=== PATIENT | female | born 1985 | race Caucasian/White ===

== ENCOUNTER → 2019-06-26 | Outpatient (CLI) | payer MEDICAID ==
[~2019-06-26] MED LIST: ACTOS15 MG; CPR500T PO; INSU100I16 SQ; INSU100I17 SQ; INSU100V6; LEVE1U SC; MTF500T; MULT-963 PO; SITA100T; [UNRECOGNIZED DRUG - CODE] SQ
[2019-06-26 17:50] LABS: BASOPHILS % (AUTO) 0 % (0-10); EOSINOPHILS % (AUTO) 5 % (0-10); HEMATOCRIT 34 % (35-52); LYMPHOCYTES % (AUTO) 44 % (12-44); MEAN CORPUSCULAR HEMOGLOBIN 31 PG (25-34); MEAN CORPUSCULAR HGB CONC 32 G/DL (32-36); MEAN CORPUSCULAR VOLUME 96 FL (80-99); MEAN PLATELET VOLUME 12.7 FL (7.4-10.4); MONOCYTES % (AUTO) 8 % (0-12); NEUTROPHILS % (AUTO) 42 % (42-75); PLATELET COUNT 179 10^3/uL (130-400); RED CELL DISTRIBUTION WIDTH 15.1 % (10.0-14.5); WHITE BLOOD COUNT 5.1 10^3/uL (4.3-11.0)
[2019-06-26 17:51] LABS: EOSINOPHILS # (AUTO) 0.3 10^3/uL (0.0-0.3); LYMPHOCYTES # (AUTO) 2.3 X 10^3 (1.0-4.0); MONOCYTES # (AUTO) 0.4 X 10^3 (0.0-1.0); NEUTROPHILS # (AUTO) 2.1 X 10^3 (1.8-7.8)
[2019-06-26 18:43] LABS: CHLORIDE 100 MMOL/L (98-107); POTASSIUM 5.8 MMOL/L (3.6-5.0); SODIUM 135 MMOL/L (135-145)
[2019-06-26 18:44] LABS: BUN/CREATININE RATIO 42; CARBON DIOXIDE 25 MMOL/L (21-32); CREATININE SERUM 0.43 MG/DL (0.60-1.30); GFR ESTIMATED > 60
[2019-06-26 19:00] LABS: ALKALINE PHOSPHATASE 55 U/L (40-136); BILIRUBIN,TOTAL 0.3 MG/DL (0.1-1.0); CALCIUM 9.4 MG/DL (8.5-10.1); GLUCOSE 619 MG/DL (70-105); MAGNESIUM 2.3 MG/DL (1.6-2.4)
[2019-06-26 19:01] LABS: ALANINE AMINOTRANSFERASE 20 U/L (0-55); ALBUMIN 3.4 GM/DL (3.2-4.5); TOTAL PROTEIN 6.1 GM/DL (6.4-8.2)
[2019-06-27 14:50] LABS: PHOSPHORUS 4.6 MG/DL (2.3-4.7)
== END ==
LOC: LAB FS 17:30
PROVIDERS: ATTEND Nurse Practitioner
DX: Z76.0 Encounter for issue of repeat prescription (principal); K31.84 Gastroparesis
CPT/HCPCS: 36415; 80053; 83735; 84100; 85025

== ENCOUNTER → 2019-06-27 | Outpatient (CLI) | payer MEDICAID ==
[2019-06-27 16:20] LABS: CARBON DIOXIDE 28 MMOL/L (21-32); CHLORIDE 104 MMOL/L (98-107); SODIUM 141 MMOL/L (135-145)
[2019-06-27 16:21] LABS: ALANINE AMINOTRANSFERASE 21 U/L (0-55); ALBUMIN 3.8 GM/DL (3.2-4.5); ALKALINE PHOSPHATASE 58 U/L (40-136); BILIRUBIN,TOTAL 0.3 MG/DL (0.1-1.0); BUN/CREATININE RATIO 48; CALCIUM 9.2 MG/DL (8.5-10.1); GFR ESTIMATED > 60; GLUCOSE 124 MG/DL (70-105); MAGNESIUM 2.1 MG/DL (1.6-2.4); TOTAL PROTEIN 6.2 GM/DL (6.4-8.2)
[2019-06-28 15:29] LABS: PHOSPHORUS 3.9 MG/DL (2.3-4.7)
== END ==
LOC: LAB FS 15:37
PROVIDERS: ATTEND Nurse Practitioner
DX: Z76.0 Encounter for issue of repeat prescription (principal); K31.84 Gastroparesis
CPT/HCPCS: 36415; 80053; 83735; 84100

== ENCOUNTER → 2019-07-02 | Outpatient (CLI) | payer MEDICAID ==
[2019-07-02 15:05] LABS: WHITE BLOOD COUNT 4.9 10^3/uL (4.3-11.0)
[2019-07-02 15:06] LABS: BASOPHILS % (AUTO) 0 % (0-10); EOSINOPHILS # (AUTO) 0.2 10^3/uL (0.0-0.3); EOSINOPHILS % (AUTO) 4 % (0-10); HEMATOCRIT 28 % (35-52); HEMOGLOBIN 8.6 G/DL (11.5-16.0); LYMPHOCYTES # (AUTO) 1.8 X 10^3 (1.0-4.0); LYMPHOCYTES % (AUTO) 37 % (12-44); MEAN CORPUSCULAR HEMOGLOBIN 30 PG (25-34); MEAN CORPUSCULAR HGB CONC 31 G/DL (32-36); MEAN CORPUSCULAR VOLUME 99 FL (80-99); MEAN PLATELET VOLUME 12.5 FL (7.4-10.4); MONOCYTES # (AUTO) 0.5 X 10^3 (0.0-1.0); MONOCYTES % (AUTO) 11 % (0-12); NEUTROPHILS # (AUTO) 2.4 X 10^3 (1.8-7.8); NEUTROPHILS % (AUTO) 49 % (42-75); PLATELET COUNT 197 10^3/uL (130-400); RED CELL DISTRIBUTION WIDTH 15.9 % (10.0-14.5)
[2019-07-02 15:25] LABS: ALANINE AMINOTRANSFERASE 18 U/L (0-55); ALKALINE PHOSPHATASE 53 U/L (40-136); BILIRUBIN,TOTAL 0.2 MG/DL (0.1-1.0); BUN/CREATININE RATIO 54; CALCIUM 9.1 MG/DL (8.5-10.1); CARBON DIOXIDE 27 MMOL/L (21-32); CHLORIDE 105 MMOL/L (98-107); CREATININE SERUM 0.41 MG/DL (0.60-1.30); GFR ESTIMATED > 60; GLUCOSE 103 MG/DL (70-105); MAGNESIUM 1.7 MG/DL (1.6-2.4); POTASSIUM 4.7 MMOL/L (3.6-5.0); SODIUM 142 MMOL/L (135-145); TOTAL PROTEIN 5.8 GM/DL (6.4-8.2)
[2019-07-02 15:26] LABS: ALBUMIN 3.4 GM/DL (3.2-4.5)
[2019-07-03 08:23] LABS: PHOSPHORUS 5.4 MG/DL (2.3-4.7)
== END ==
LOC: LAB FS 14:18
PROVIDERS: ATTEND Family Medicine
DX: Z76.0 Encounter for issue of repeat prescription (principal); K31.84 Gastroparesis
CPT/HCPCS: 36415; 80053; 83735; 84100; 85025

== ENCOUNTER → 2019-07-09 | Outpatient (CLI) | payer OTHER, MEDICAID ==
[2019-07-09 13:00] LABS: HEMATOCRIT 31 % (35-52); HEMOGLOBIN 9.9 G/DL (11.5-16.0); MEAN CORPUSCULAR HEMOGLOBIN 31 PG (25-34); MEAN CORPUSCULAR VOLUME 96 FL (80-99); WHITE BLOOD COUNT 5.5 10^3/uL (4.3-11.0)
[2019-07-09 13:01] LABS: BASOPHILS % (AUTO) 0 % (0-10); EOSINOPHILS # (AUTO) 0.1 10^3/uL (0.0-0.3); EOSINOPHILS % (AUTO) 1 % (0-10); LYMPHOCYTES # (AUTO) 1.6 X 10^3 (1.0-4.0); LYMPHOCYTES % (AUTO) 29 % (12-44); MEAN CORPUSCULAR HGB CONC 32 G/DL (32-36); MEAN PLATELET VOLUME 12.5 FL (7.4-10.4); MONOCYTES # (AUTO) 0.6 X 10^3 (0.0-1.0); MONOCYTES % (AUTO) 10 % (0-12); NEUTROPHILS # (AUTO) 3.3 X 10^3 (1.8-7.8); NEUTROPHILS % (AUTO) 59 % (42-75); PLATELET COUNT 237 10^3/uL (130-400); RED CELL DISTRIBUTION WIDTH 14.9 % (10.0-14.5)
[2019-07-09 13:23] LABS: ALANINE AMINOTRANSFERASE 17 U/L (0-55); ALKALINE PHOSPHATASE 55 U/L (40-136); BILIRUBIN,TOTAL 0.5 MG/DL (0.1-1.0); BUN/CREATININE RATIO 42; CALCIUM 9.2 MG/DL (8.5-10.1); CARBON DIOXIDE 27 MMOL/L (21-32); CHLORIDE 104 MMOL/L (98-107); CREATININE SERUM 0.36 MG/DL (0.60-1.30); GFR ESTIMATED > 60; GLUCOSE 88 MG/DL (70-105); MAGNESIUM 1.8 MG/DL (1.6-2.4); POTASSIUM 3.9 MMOL/L (3.6-5.0); SODIUM 141 MMOL/L (135-145)
[2019-07-09 13:24] LABS: ALBUMIN 3.7 GM/DL (3.2-4.5); TOTAL PROTEIN 6.3 GM/DL (6.4-8.2)
[2019-07-09 15:02] LABS: PHOSPHORUS 3.8 MG/DL (2.3-4.7)
== END ==
LOC: LABNPT 12:38
PROVIDERS: ATTEND Family Medicine
DX: Z76.0 Encounter for issue of repeat prescription (principal); K31.84 Gastroparesis
CPT/HCPCS: 80053; 83735; 84100; 85025

== ENCOUNTER → 2019-07-16 | Outpatient (CLI) | payer OTHER, MEDICAID ==
[2019-07-16 16:28] LABS: BASOPHILS % (AUTO) 0 % (0-10); EOSINOPHILS # (AUTO) 0.2 10^3/uL (0.0-0.3); EOSINOPHILS % (AUTO) 2 % (0-10); HEMATOCRIT 35 % (35-52); HEMOGLOBIN 10.9 G/DL (11.5-16.0); LYMPHOCYTES % (AUTO) 26 % (12-44); MEAN CORPUSCULAR HEMOGLOBIN 31 PG (25-34); MEAN CORPUSCULAR HGB CONC 31 G/DL (32-36); MEAN CORPUSCULAR VOLUME 99 FL (80-99); MEAN PLATELET VOLUME 13.6 FL (7.4-10.4); MONOCYTES # (AUTO) 0.5 X 10^3 (0.0-1.0); MONOCYTES % (AUTO) 6 % (0-12); NEUTROPHILS # (AUTO) 4.9 X 10^3 (1.8-7.8); NEUTROPHILS % (AUTO) 65 % (42-75); PLATELET COUNT 182 10^3/uL (130-400); RED CELL DISTRIBUTION WIDTH 14.1 % (10.0-14.5); WHITE BLOOD COUNT 7.6 10^3/uL (4.3-11.0)
[2019-07-16 17:21] LABS: BUN/CREATININE RATIO 50; CALCIUM 9.1 MG/DL (8.5-10.1); CARBON DIOXIDE 23 MMOL/L (21-32); CHLORIDE 101 MMOL/L (98-107); CREATININE SERUM 0.44 MG/DL (0.60-1.30); GFR ESTIMATED > 60; GLUCOSE 168 MG/DL (70-105); POTASSIUM 5.1 MMOL/L (3.6-5.0); SODIUM 137 MMOL/L (135-145)
[2019-07-16 17:22] LABS: ALANINE AMINOTRANSFERASE 21 U/L (0-55); ALBUMIN 3.7 GM/DL (3.2-4.5); ALKALINE PHOSPHATASE 61 U/L (40-136); BILIRUBIN,TOTAL 0.5 MG/DL (0.1-1.0); MAGNESIUM 1.8 MG/DL (1.6-2.4); TOTAL PROTEIN 6.5 GM/DL (6.4-8.2)
== END ==
LOC: LAB FS 15:53
PROVIDERS: ATTEND Nurse Practitioner
DX: K31.84 Gastroparesis (principal); R11.2 Nausea with vomiting, unspecified
CPT/HCPCS: 36415; 80053; 83735; 84100; 85025

== ENCOUNTER → 2019-07-23 | Outpatient (CLI) | payer OTHER, MEDICAID ==
[2019-07-23 17:40] LABS: HEMATOCRIT 34 % (35-52); HEMOGLOBIN 10.7 G/DL (11.5-16.0); MEAN CORPUSCULAR HEMOGLOBIN 30 PG (25-34); MEAN CORPUSCULAR HGB CONC 31 G/DL (32-36); MEAN CORPUSCULAR VOLUME 98 FL (80-99); MEAN PLATELET VOLUME 13.9 FL (7.4-10.4); PLATELET COUNT 167 10^3/uL (130-400); RED CELL DISTRIBUTION WIDTH 13.7 % (10.0-14.5); WHITE BLOOD COUNT 7.6 10^3/uL (4.3-11.0)
[2019-07-23 17:41] LABS: BASOPHILS % (AUTO) 0 % (0-10); EOSINOPHILS # (AUTO) 0.1 10^3/uL (0.0-0.3); EOSINOPHILS % (AUTO) 2 % (0-10); LYMPHOCYTES # (AUTO) 1.8 X 10^3 (1.0-4.0); LYMPHOCYTES % (AUTO) 24 % (12-44); MONOCYTES # (AUTO) 0.3 X 10^3 (0.0-1.0); MONOCYTES % (AUTO) 4 % (0-12); NEUTROPHILS # (AUTO) 5.3 X 10^3 (1.8-7.8); NEUTROPHILS % (AUTO) 70 % (42-75)
[2019-07-23 18:12] LABS: POTASSIUM 5.1 MMOL/L (3.6-5.0); SODIUM 135 MMOL/L (135-145)
[2019-07-23 18:13] LABS: ALANINE AMINOTRANSFERASE 19 U/L (0-55); ALBUMIN 3.7 GM/DL (3.2-4.5); ALKALINE PHOSPHATASE 60 U/L (40-136); BILIRUBIN,TOTAL 0.5 MG/DL (0.1-1.0); BUN/CREATININE RATIO 44; CALCIUM 9.1 MG/DL (8.5-10.1); CARBON DIOXIDE 25 MMOL/L (21-32); CHLORIDE 98 MMOL/L (98-107); CREATININE SERUM 0.43 MG/DL (0.60-1.30); GFR ESTIMATED > 60; GLUCOSE 291 MG/DL (70-105); MAGNESIUM 1.7 MG/DL (1.6-2.4); TOTAL PROTEIN 6.7 GM/DL (6.4-8.2)
[2019-07-24 15:11] LABS: PHOSPHORUS 4.3 MG/DL (2.3-4.7)
== END ==
LOC: LAB FS 16:59
PROVIDERS: ATTEND Nurse Practitioner
DX: Z76.0 Encounter for issue of repeat prescription (principal); K31.84 Gastroparesis
CPT/HCPCS: 36415; 80053; 83735; 84100; 85025

== ENCOUNTER → 2019-07-30 | Outpatient (CLI) | payer OTHER, MEDICAID ==
[2019-07-30 16:01] LABS: HEMATOCRIT 33 % (35-52); HEMOGLOBIN 10.6 G/DL (11.5-16.0); MEAN CORPUSCULAR HEMOGLOBIN 31 PG (25-34); MEAN CORPUSCULAR VOLUME 98 FL (80-99)
[2019-07-30 16:02] LABS: BASOPHILS % (AUTO) 0 % (0-10); EOSINOPHILS % (AUTO) 3 % (0-10); LYMPHOCYTES % (AUTO) 19 % (12-44); MEAN CORPUSCULAR HGB CONC 32 G/DL (32-36); MEAN PLATELET VOLUME 13.9 FL (7.4-10.4); MONOCYTES % (AUTO) 6 % (0-12); PLATELET COUNT 170 10^3/uL (130-400); RED CELL DISTRIBUTION WIDTH 13.4 % (10.0-14.5)
[2019-07-30 16:03] LABS: NEUTROPHILS % (AUTO) 72 % (42-75)
[2019-07-30 16:04] LABS: EOSINOPHILS # (AUTO) 0.3 10^3/uL (0.0-0.3); LYMPHOCYTES # (AUTO) 1.9 X 10^3 (1.0-4.0); MONOCYTES # (AUTO) 0.6 X 10^3 (0.0-1.0); NEUTROPHILS # (AUTO) 7.2 X 10^3 (1.8-7.8)
[2019-07-30 17:17] LABS: ALANINE AMINOTRANSFERASE 20 U/L (0-55); ALBUMIN 3.7 GM/DL (3.2-4.5); ALKALINE PHOSPHATASE 55 U/L (40-136); BILIRUBIN,TOTAL 0.4 MG/DL (0.1-1.0); BUN/CREATININE RATIO 45; CALCIUM 9.6 MG/DL (8.5-10.1); CARBON DIOXIDE 26 MMOL/L (21-32); CHLORIDE 99 MMOL/L (98-107); GFR ESTIMATED > 60; GLUCOSE 243 MG/DL (70-105); MAGNESIUM 1.8 MG/DL (1.6-2.4); POTASSIUM 4.6 MMOL/L (3.6-5.0); SODIUM 136 MMOL/L (135-145); TOTAL PROTEIN 6.5 GM/DL (6.4-8.2)
== END ==
LOC: LAB FS 15:12
PROVIDERS: ATTEND Nurse Practitioner
DX: K31.84 Gastroparesis (principal); R11.2 Nausea with vomiting, unspecified; Z76.0 Encounter for issue of repeat prescription
CPT/HCPCS: 36415; 80053; 83735; 84100; 85025

== ENCOUNTER → 2019-08-06 | Outpatient (CLI) | payer OTHER, MEDICAID ==
[2019-08-06 18:09] LABS: BASOPHILS % (AUTO) 0 % (0-10); EOSINOPHILS % (AUTO) 3 % (0-10); HEMATOCRIT 34 % (35-52); HEMOGLOBIN 10.7 G/DL (11.5-16.0); LYMPHOCYTES % (AUTO) 29 % (12-44); MEAN CORPUSCULAR HEMOGLOBIN 31 PG (25-34); MEAN CORPUSCULAR HGB CONC 32 G/DL (32-36); MEAN CORPUSCULAR VOLUME 98 FL (80-99); MEAN PLATELET VOLUME 13.7 FL (7.4-10.4); MONOCYTES % (AUTO) 6 % (0-12); NEUTROPHILS % (AUTO) 62 % (42-75); PLATELET COUNT 198 10^3/uL (130-400); RED CELL DISTRIBUTION WIDTH 13.4 % (10.0-14.5); WHITE BLOOD COUNT 6.8 10^3/uL (4.3-11.0)
[2019-08-06 18:10] LABS: EOSINOPHILS # (AUTO) 0.2 10^3/uL (0.0-0.3); MONOCYTES # (AUTO) 0.4 X 10^3 (0.0-1.0); NEUTROPHILS # (AUTO) 4.2 X 10^3 (1.8-7.8)
[2019-08-06 18:25] LABS: ALANINE AMINOTRANSFERASE 15 U/L (0-55); ALBUMIN 3.7 GM/DL (3.2-4.5); ALKALINE PHOSPHATASE 55 U/L (40-136); BILIRUBIN,TOTAL 0.5 MG/DL (0.1-1.0); BUN/CREATININE RATIO 54; CALCIUM 9.4 MG/DL (8.5-10.1); CARBON DIOXIDE 25 MMOL/L (21-32); CHLORIDE 99 MMOL/L (98-107); CREATININE SERUM 0.37 MG/DL (0.60-1.30); GFR ESTIMATED > 60; GLUCOSE 195 MG/DL (70-105); MAGNESIUM 1.7 MG/DL (1.6-2.4); POTASSIUM 4.4 MMOL/L (3.6-5.0); SODIUM 136 MMOL/L (135-145); TOTAL PROTEIN 6.3 GM/DL (6.4-8.2)
[2019-08-06 19:10] LABS: PHOSPHORUS 4.1 MG/DL (2.3-4.7)
== END ==
LOC: LAB FS 17:29
PROVIDERS: ATTEND Nurse Practitioner
DX: K31.84 Gastroparesis (principal); R11.2 Nausea with vomiting, unspecified
CPT/HCPCS: 36415; 80053; 83735; 84100; 85025

== ENCOUNTER → 2019-08-13 | Outpatient (CLI) | payer OTHER, MEDICAID ==
[2019-08-13 17:07] LABS: HEMATOCRIT 32 % (35-52); HEMOGLOBIN 9.9 G/DL (11.5-16.0); MEAN CORPUSCULAR HEMOGLOBIN 31 PG (25-34); MEAN CORPUSCULAR HGB CONC 31 G/DL (32-36); MEAN CORPUSCULAR VOLUME 99 FL (80-99); MEAN PLATELET VOLUME 13.8 FL (7.4-10.4); PLATELET COUNT 151 10^3/uL (130-400); RED CELL DISTRIBUTION WIDTH 13.3 % (10.0-14.5); WHITE BLOOD COUNT 6.6 10^3/uL (4.3-11.0)
[2019-08-13 17:08] LABS: BASOPHILS % (AUTO) 0 % (0-10); EOSINOPHILS # (AUTO) 0.2 10^3/uL (0.0-0.3); EOSINOPHILS % (AUTO) 3 % (0-10); LYMPHOCYTES # (AUTO) 2.2 X 10^3 (1.0-4.0); LYMPHOCYTES % (AUTO) 33 % (12-44); MONOCYTES # (AUTO) 0.5 X 10^3 (0.0-1.0); MONOCYTES % (AUTO) 8 % (0-12); NEUTROPHILS # (AUTO) 3.7 X 10^3 (1.8-7.8); NEUTROPHILS % (AUTO) 56 % (42-75)
[2019-08-13 17:11] LABS: ALANINE AMINOTRANSFERASE 26 U/L (0-55); ALKALINE PHOSPHATASE 56 U/L (40-136); BILIRUBIN,TOTAL 0.3 MG/DL (0.1-1.0); BUN/CREATININE RATIO 41; CARBON DIOXIDE 24 MMOL/L (21-32); CHLORIDE 102 MMOL/L (98-107); CREATININE SERUM 0.46 MG/DL (0.60-1.30); GFR ESTIMATED > 60; GLUCOSE 268 MG/DL (70-105); MAGNESIUM 1.7 MG/DL (1.6-2.4); POTASSIUM 5.3 MMOL/L (3.6-5.0); SODIUM 137 MMOL/L (135-145); TOTAL PROTEIN 5.8 GM/DL (6.4-8.2)
[2019-08-13 17:12] LABS: ALBUMIN 3.6 GM/DL (3.2-4.5)
[2019-08-14 15:18] LABS: PHOSPHORUS 5.3 MG/DL (2.3-4.7)
== END ==
LOC: LAB FS 16:25
PROVIDERS: ATTEND Family Medicine
DX: K31.84 Gastroparesis (principal)
CPT/HCPCS: 36415; 80053; 83735; 84100; 85025

== ENCOUNTER → 2019-08-20 | Outpatient (CLI) | payer OTHER, MEDICAID ==
[2019-08-20 14:47] LABS: BASOPHILS % (AUTO) 0 % (0-10); EOSINOPHILS % (AUTO) 2 % (0-10); HEMATOCRIT 34 % (35-52); HEMOGLOBIN 10.7 G/DL (11.5-16.0); LYMPHOCYTES % (AUTO) 29 % (12-44); MEAN CORPUSCULAR HEMOGLOBIN 31 PG (25-34); MEAN CORPUSCULAR HGB CONC 32 G/DL (32-36); MEAN CORPUSCULAR VOLUME 97 FL (80-99); MEAN PLATELET VOLUME 13.7 FL (7.4-10.4); MONOCYTES % (AUTO) 8 % (0-12); NEUTROPHILS % (AUTO) 61 % (42-75); PLATELET COUNT 179 10^3/uL (130-400); RED CELL DISTRIBUTION WIDTH 13.2 % (10.0-14.5); WHITE BLOOD COUNT 6.7 10^3/uL (4.3-11.0)
[2019-08-20 14:48] LABS: EOSINOPHILS # (AUTO) 0.1 10^3/uL (0.0-0.3); LYMPHOCYTES # (AUTO) 1.9 X 10^3 (1.0-4.0); MONOCYTES # (AUTO) 0.6 X 10^3 (0.0-1.0); NEUTROPHILS # (AUTO) 4.1 X 10^3 (1.8-7.8)
[2019-08-20 15:25] LABS: CHLORIDE 99 MMOL/L (98-107); POTASSIUM 4.1 MMOL/L (3.6-5.0); SODIUM 138 MMOL/L (135-145)
[2019-08-20 15:26] LABS: ALANINE AMINOTRANSFERASE 19 U/L (0-55); ALBUMIN 3.8 GM/DL (3.2-4.5); ALKALINE PHOSPHATASE 55 U/L (40-136); BILIRUBIN,TOTAL 0.5 MG/DL (0.1-1.0); BUN/CREATININE RATIO 44; CALCIUM 9.4 MG/DL (8.5-10.1); CARBON DIOXIDE 26 MMOL/L (21-32); CREATININE SERUM 0.39 MG/DL (0.60-1.30); GFR ESTIMATED > 60; GLUCOSE 202 MG/DL (70-105); MAGNESIUM 1.6 MG/DL (1.6-2.4); TOTAL PROTEIN 6.4 GM/DL (6.4-8.2)
[2019-08-21 14:59] LABS: PHOSPHORUS 3.8 MG/DL (2.3-4.7)
== END ==
LOC: LAB FS 14:07
PROVIDERS: ATTEND Family Medicine
DX: K31.84 Gastroparesis (principal)
CPT/HCPCS: 36415; 80053; 83735; 84100; 85025

== ENCOUNTER 2019-10-26 15:46 | Emergency (ER) | payer OTHER, MEDICAID ==
[~2019-10-26] VITALS: Ht 157 cm; Wt 50.7 kg
--- OUTSIDE RECORDS SUMMARY | 2019-10-26 16:17 | XMS REPORT ---
Author Author Ai TAN Organization [facility] Address [address] [place] [address] Care Team Providers Care Fashion Show Director Name Role Phone SHAAN TAN Unavailable PROBLEMS Type Condition ICD9-CM Code ULD02-RU Code Onset Dates Condition S tatus SNOMED Code Problem Anxiety state, unspecified 300.00 Act jeanne [id number] Problem Insomnia, unspecified 780.52 Active 689161529 Problem Constipation, unspecified constipation type K59.00 Active 68695418 Problem Constipation, unspecified constipation type K59.00 Active 55296344 Problem Anxiety disorder, unspecified F41.9 Active 327817220 Problem Anxiety F41.9 Active 25270951 Problem Type 1 diabetes mellitus with hyperglycemia E10.65 Active 558374617694112 Problem Slow transit constipation K59.01 Acti ve 04097790 Problem Gastroparesis K31.84 Active 718576 006 Problem Jejunostomy tube present Z93.4 Activ e 644009388 Problem Intractable cyclical vomiting with nausea G43.A1 Active 89036978 Problem Malnutrition due to starvation E46 Active 666362082691392 Problem 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 Active 47049787 Problem Type 2 diabetes mellitus with diabetic autonomic (poly)neuropathy E11.43 Active 751369657 Problem Jejunostomy present Z93.4 Active 272031352 Problem Jejunostomy site infection K94.12 Act jeanne 758672623 Problem Jejunostomy tube site pain K94.19 Act jeanne ALLERGIES No Information ENCOUNTERS Encounter Location Date Diagnosis [place] [id number] [facility] [id number] [place] [address] Jun, [address] [place] [address] Jun, [facility] [address] [facility] [id number] [place] [address] Jun, [address] [id number] [place] [address] Jun, [facility] [address] [place] [address] [facility] [place] [id number] [place] [address] Jun, Anxiety F41.9 [facility] [place] [address] [facility]757R [place] [address] Jun, [place] [address] [address] [place] [address] Jun, [facility] [address] [facility] [place] [address] May, [facility] [place] [id number] [place] [id number] [place] [address] May, [facility] [place] [id number] [place] [id number] [address] May, [facility] [address] [facility] [place] [address] May, [facility] [place] [address] [place] [id number] [address] May, [facility] [place] [address] [place] [id number] [address] May, [facility] [place] [address] [place] [id number] [address] May, Anxiety disorder, unspecified F41.9 ; Ma lnutrition due to starvation E46 and Weight loss R63.4 [facility] [place] [address] [place] [id number] [address] May, [facility] [address] [place] [address] May, [facility] [place] [id number] [place] [id number] [address] May, [facility] [place] [address] [place] [id number] [address] May, [facility] [place] [address] [place] [id number] [address] Apr, [address] [place] [address] Apr, Intractable cyclical vomiting with nause a G43.A1 [address] [address] Apr, [facility] [address] [facility] [place] [address] Apr, Type 1 diabetes mellitus with hyperglyce ranjith E10.65 [address] [address] Apr, Anorexia nervosa, restricting type, cisco re F50.01 ; Type 1 diabetes mellitus with hyperglycemia E10.65 and Malnutrition due to starvation E46 [address] [address] Apr, Gastroparesis K31.84 ; Weight loss R63.4 ; Dehydration E86.0 ; Intractable vomiting with nausea, unspecified vomiting type R11.2 ; Type 1 diabetes mellitus with hyperglycemia E10.65 ; Anxiety F41.9 and Anxiety disorder, unspecified F41.9 [address] [place] [address] Apr, Anxiety disorder, unspecified F41.9 [address] [place] [address] Apr, [address] [place] [address] Apr, [address] [place] [address] Apr, Intractable cyclical vomiting with nause a G43.A1 [address] [place] [address] Apr, [address] [place] [address] Mar, [address] [place] [address] Mar, [address] [address] Jan, [address] [place] [address] Jan, [address] [place] [address] 09 Jan, 2019 Type 1 diabetes mellitus with hyperglyce ranjith E10.65 [address] [place] [address] 08 Jan, 2019 Type 1 diabetes mellitus with hyperglyce ranjith E10.65 [address] [place] [address] 07 Jan, 2019 Type 1 diabetes mellitus with hyperglyce ranjith E10.65 ; Nausea R11.0 ; Intractable cyclical vomiting with nausea G43.A1 and Anxiety disorder, unspecified F41.9 [address] [place] [address] 17 Dec, 2018 Jejunostomy tube present Z93.4 and Jejun ostomy tube site pain K94.19 [address] [place] [address] 04 Dec, 2018 Anxiety disorder, unspecified F41.9 [address] [place] [address] 03 Dec, 2018 Intractable cyclical vomiting with nause a G43.A1 ; Type 1 diabetes mellitus with hyperglycemia E10.65 ; Gastroparesis K31.84 ; Cachexia R64 ; Slow transit constipation K59.01 ; Anxiety F41.9 ; Skin infection L08.9 ; Jejunostomy site infection K94.12 and Jejunostomy present Z93.[address] [place] [address] Nov, Anxiety disorder, unspecified F41.[address] [place] [address] Nov, Anxiety disorder, unspecifie d F41.9 [address] [place] [address] Nov, [address] [place] [address] Nov, Anxiety disorder, unspecified F41.9 [facility] [address] [address] [facility]757[address] [place] [address] Nov, [facility] [address] [place] [id number] [address] Nov, [facility] [place] [address] Nov, Anxiety F41.9 [address] [place] [address] Nov, Gastroparesis K31.84 ; 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 and Intractable cyclical vomiting with nausea G43.A1 [facility] [address] [place] [address] Oct, [facility] [address] [facility] [place] [address] Oct, [address] [place] [address] Oct, [facility] [address] [place] [address] Oct, [facility] [address] [place] [address] Oct, [facility] [address] [place] [address] Oct, Cough R05 ; Constipation, unspecified co nstipation type K59.00 ; Non- intractable vomiting with nausea, unspecified vomiting type R11.2 ; Uses feeding tube Z97.8 ; Weakness R53.1 and Type 1 diabetes mellitus with hyperglycemia E10.65 [facility] [address] [place] [address] Oct, [facility] [place] [id number] [place] [id number] [address] Oct, [facility] [place] [address] Oct, Dysuria R30.0 ; Anxiety F41.9 ; Decrease d urination R34 ; Leukocytes in urine R82.998 ; Uses feeding tube Z97.8 and Constipation, unspecified constipation type K59.00 [address] [place] [address] Oct, [address] [place] [address] Oct, Intractable cyclical vomiting with nause a G43.A1 and Weight loss R63.4 [address] [place] [address] Oct, Anxiety disorder, unspecified F41.9 ; In tractable cyclical vomiting with nausea G43.A1 ; Nausea R11.0 ; Weight loss R63.4 ; Cachexia R64 ; Unintended weight loss R63.4 ; Weakness R53.1 and 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 [address] [place] [address] Oct, [place] [address] [place] [address] [place] [address] Sep, [address] [place] [address] Sep, [address] [place] [address] Sep, [address] [place] [address] Sep, [address] [place] [address] Jun, [facility] [place] [place] [address] May, [address] [place] [address] May, [address] [place] [address] May, [place] [address] [address] Jul, [place] [address] [place] [address] [id number] [place] [address] Jul, [facility] [id number] [place] [address] Sep, [facility] [id number] [place] [address] Jun, [facility] [id number] [place] [address] Mar, [facility] [id number] [place] [address] Mar, [facility] [id number] [place] [address] Jan, [facility] [id number] [place] [address] Jan, [facility] [id number] [place] [address] Nov, [facility] [id number] [place] [address] Jun, [facility] [id number] [place] [address] Mar, [facility] [id number] [place] [address] Sep, [facility] [id number] [place] [address] Apr, [facility] [id number] [place] [address] Mar, [facility] [id number] [place] [address] Mar, [facility] [id number] [place] [address] Jan, [facility] [address] [place] [id number] [place] [address] August, IMMUNIZATIONS No Known Immunizations SOCIAL HISTORY Never Assessed REASON FOR VISIT Refill request PLAN OF CARE VITAL SIGNS MEDICATIONS Medication Instructions Dosage Frequency Start Date End Date Duration S fabiola Gabapentin 100 MG Orally Three times a day 1 capsule 8h Jun, 30 day(s) Active RESULTS No Results PROCEDURES No Known procedures INSTRUCTIONS MEDICATIONS ADMINISTERED No Known Medications MEDICAL (GENERAL) HISTORY Type Description Date Medical History lap sheela Surgical History lap sheela 2018 Surgical History feeding tube 2018 Hospitalization History [place] 2018 Hospitalization History lap sheela and peg tube 11/2018
--- OUTSIDE RECORDS SUMMARY | 2019-10-26 16:17 | XMS REPORT | Continuity of Care Document ---
Author Author [facility] Organization [facility] Address Unknown Phone Unavailable Care Team Providers Care Program Analyst Name Role Phone [facility] OF Insurance Providers Payer Name Policy Number Subscriber Name Relationship Self Pay Ai Butler Self / Same As Patient Advance Directives Directive Response Recor ded Date Advance Directives N 03/14 12:08pm Health Care Power of Wick [employer] Base As[employer]er N 10/10/12 12:08pm Organ Donor N 10/10/12 1 2:08pm Problems No Known Problems or Medical conditions. Family History History Response Recorde d Date/Time Hx Family Cancer Y MATERNAL GRANDPAR ENTS BONE CA, GASTRIC CA 10/10/12 12:01pm Social History History Response Recorde d Date/Time Alcohol Use Denies Use 0 10/10/12 12:03pm Recreational Drug Use N 10/10/12 12:03pm Recent Foreign Travel N 10/10/12 12:03pm Recent Infectious Disease Exposure N 10/10/12 12:03pm Hospitalization with Isolation Denies 10/12/12 2:42pm Allergies, Adverse Reactions, Alerts Allergen Type Severity Reaction Last Updated No Known Drug Allergies 12/02/08 Medications Medication Dose Units Route Sig Qty Days Insulin Detemir (Levemir Pen) 17 Units SC HS 30 Insulin Aspart (Novolog) 11 Unit SQ AC Multivitamin (Multi-Vitamin Daily) 1 Tab PO DAILY Insulin Detemir (Levemir) 14 Unit SQ HS Insuln Asp Prt/Insulin Aspart (Novolog Mix 70-30 Vial) 11 Unit SQ AC Immunizations Name Given Type pneumococcal polysaccharide PPV23 10/11/12 A pneumococcal polysaccharide PPV23 10/11/12 A Response Recorded Date/Time Status not known Unknown Results Test Date Result Interp. Ref. Range Alanine Aminotransferase (ALT/SGPT) October 11, 2012 6:00am 27 U/L L 30-65 Albumin October 11, 2012 6:00am 2.8 G/DL L 3.4-5.0 Alkaline Phosphatase October 11, 2012 6:00am 94 U/L N 50-136 Jhonny Test October 10, 2012 9:25am POSITIVE - Amylase Level October 10, 2012 9:12am 34 U/L N 25-115 Anisocytosis December 02, 2008 7:45pm SLIGHT - Arterial Blood Base Excess October 10, 2012 9:25am -22.4 MMOL/L L -2.5-2.5 Arterial Blood HCO3 October 10, 2012 9:25am 6 MMOL/L PL 23-27 Arterial Blood Oxygen Saturation Roman 2012 9:25am 98 % N 94-100 Arterial Blood Partial Pressure CO2 October 10, 2012 9:25am 22 MMHG L 35-45 Arterial Blood Partial Pressure O2 J 2012 9:25am 140 MMHG H 79-93 Arterial Blood Total CO2 October 10 9:25am 6.9 MMOL/L PL 21.0-31.0 Arterial Blood pH October 10, 2012 9:25am 7.07 L 7.37-7.43 Aspartate Amino Transf (AST/SGOT) Ju 2012 6:00am 10 U/L L 15-37 BUN/Creatinine Ratio October 11, 2012 6:00am 16 - Band Neutrophils October 10, 2012 9:12am 4 % - Basophils # (Auto) October 10, 2012 9:12am 0.0 10^3/uL N 0.0-0.1 Basophils % (Manual) October 10, 2012 9:12am 0 % - Basophils (%) (Auto) October 10, 2012 9:12am 0 % N 0-10 Blood Gas Inspired Oxygen October 10 013 9:25am NO - Blood Gas Patient Temperature September 302012 9:25am 98.4 - Blood Gas Puncture Site October 10 3 9:25am RIGHT RADIAL - Blood Gas Ventilator Setting September 9:25am NO - Blood Urea Nitrogen October 11, 2012 6:00am 13 MG/DL N 7-18 Calcium Level October 11, 2012 6:00am 8.3 MG/DL L 8.5-10.1 Carbon Dioxide Level October 11, 2012 6:00am 22 MMOL/L N 21-32 Chloride Level October 11, 2012 6:00am 101 MMOL/L N 101-110 Creatinine October 11, 2012 6:00am 0.8 MG/DL N 0.6-1.3 Eosinophils # (Auto) October 10, 2012 9:12am 0.0 10^3/uL N 0.0-0.3 Eosinophils % (Manual) October 10, 2012 9:12a m 0 % - Eosinophils (%) (Auto) October 10, 2012 9:12a m 0 % N 0-10 Glucose Level October 11, 2012 6:00am 334 MG/DL H 74-106 Hematocrit October 11, 2012 6:00am 36 % N 35-52 Hemoglobin October 11, 2012 6:00am 11.5 G/DL DN 11.5-16.0 Hemoglobin A1c October 10, 2012 9:12am 10.3 % H 4.5-6.2 Lipase October 10, 2012 9:12am 102 U/L N 73-393 Lymphocytes # (Auto) October 10, 2012 9:12am 1.2 X 10^3 N 1.0-4.0 Lymphocytes % (Manual) October 10, 2012 9:12a m 6 % - Lymphocytes (%) (Auto) October 10, 2012 9:12a m 7 % L 12-44 Magnesium Level October 10, 2012 1:05pm 1.7 MG/DL L 1.8-2.4 Mean Corpuscular Hemoglobin October 11, 2012 6:00am 30 PG N 25-34 Mean Corpuscular Hemoglobin Concent October 11, 2012 6:00am 32 G/DL N 32-36 Mean Corpuscular Volume October 11 3 6:00am 94 FL N 80-99 Mean Platelet Volume October 11, 2012 6:00am 11.4 FL H 7.4-10.4 Monocytes # (Auto) October 10, 2012 9:12am 0.4 X 10^3 N 0.0-1.0 Monocytes % (Manual) October 10, 2012 9:12am 0 % - Monocytes (%) (Auto) October 10, 2012 9:12am 2 % N 0-12 Neutrophils # (Auto) October 10, 2012 9:12am 16.3 X 10^3 H 1.8-7.8 Neutrophils % (Manual) October 10, 2012 9:12a m 90 % - Neutrophils (%) (Auto) October 10, 2012 9:12a m 91 % H 42-75 Phosphorus Level October 10, 2012 9:12am 6.0 MG/DL H 2.5-4.9 Platelet Count October 11, 2012 6:00am 235 10^3/uL N 130-400 Potassium Level October 11, 2012 6:00am 4.6 MMOL/L N 3.6-5.0 Red Blood Count October 11, 2012 6:00am 3.87 10^6/uL L 4.35-5.85 Red Cell Distribution Width October 11, 2012 6:00am 12.4 % N 10.0-14.5 Serum Test, Qualitative Au james 2008 7:45pm NEGATIVE - Sodium Level October 11, 2012 6:00am 130 MMOL/L L 135-145 Thyroid Stimulating Hormone (TSH) Ju 2012 9:12am 0.59 UIU/ML N 0.34-5.60 Total Bilirubin October 11, 2012 6:00am 0.3 MG/DL N 0.0-1.0 Total Protein October 11, 2012 6:00am 6.3 G/DL L 6.4-8.2 Urine Acetone Level December 05, 2008 8:00am NEGATIVE MG/DL - Urine Bacteria October 10, 2012 10:50am TRACE /HPF - Urine Bilirubin October 10, 2012 10:50am NEGATIVE - Urine Casts October 10, 2012 10:50am NONE /LPF - Urine Clarity October 10, 2012 10:50am CLEAR - Urine Color October 10, 2012 10:50am YELLOW - Urine Crystals October 10, 2012 10:50am NONE /LPF - Urine Culture Indicated October 10 3 10:50am YES - Urine Glucose (UA) October 10, 2012 10:50am 4+ H - Urine Ketones October 10, 2012 10:50am 4+ H - Urine Leukocyte Esterase October 10 13 10:50am NEGATIVE - Urine Mucus October 10, 2012 10:50am NEGATIVE /LPF - Urine Nitrite October 10, 2012 10:50am NEGATIVE - Urine Test October 10, 2012 10:50am NEGATIVE - Urine Protein October 10, 2012 10:50am 2+ H - Urine RBC October 10, 2012 10:50am RARE /HPF - Urine Specific Staley October 10, 2012 10:50am 1.025 H - Urine Squamous Epithelial Cells October 10, 2012 10:50am 5-10 /HPF - Urine Urobilinogen October 10, 2012 10:50am NORMAL MG/DL - Urine WBC October 10, 2012 10:50am NONE /HPF - Urine Yeast October 10, 2012 10:50am FEW /HPF H - Urine pH October 10, 2012 10:50am 5 - White Blood Count October 11, 2012 6:00am 7.8 10^3/uL N 4.3-11.0 Serum Alcohol January 29, 2011 3:45am 168 MG/DL H -5 Glucometer October 11, 2012 9:30am 247 MG/DL H 70-110 Estimat Glomerular Filtration Rate J [facility] 2012 9:12am 49 - Blood Morphology Comment October 10 9:12am NORMAL - Urine RBC (Auto) October 10, 2012 10:50am NEGATIVE - Procedures Procedure Code Date Urine Culture 10/10/12 Encounters Encounter Location Date/ Time Discharged Inpatient [facility] 10/10/12 10:17am Departed Emergency Room [facility] 01/29/11 3:39am
--- OUTSIDE RECORDS SUMMARY | 2019-10-26 16:17 | XMS REPORT ---
Author Author Ai Cobos Doctor Organization [facility] Address Unknown Phone Unavailable Care Team Providers Care Strategy Specialist Name Role Phone Migration, Doctor Unavailable Unavailable PROBLEMS Type Condition ICD9-CM Code [id number] Code Onset Dates Condition S tatus SNOMED Code Problem Insomnia, unspecified 780.52 Active 436610758 Problem Anxiety state, unspecified 300.00 Act jeanne [id number] ALLERGIES No Information ENCOUNTERS Encounter Location Date Diagnosis [address] [address] Jun, [address] [address] May, [address] [address] May, [address] [address] May, [facility] [place] [address] [facility] [id number] [address] [place] [address] Jul, [facility] [place] [address] [facility] [id number] [address] [place] [address] Jul, [facility] [place] [address] [facility] [id number] [address] [place] [address] Sep, [facility] [place] [address] [id number] [address] [place] [address] Jun, [facility] [place] [address] [id number] [address] [place] [address] Mar, [facility] [place] [address] [facility] [id number] [address] [place] [address] Mar, [facility] [place] [address] [facility] [id number] [address] [place] [address] Jan, [facility] [place] [address] [facility] [id number] [address] [place] [address] Jan, [facility] [place] [address] [id number] [address] [place] [address] Nov, [facility] [place] [address] [id number] [address] [place] [address] Jun, [facility] [place] [address] [id number] [address] [place] [address] Mar, [facility] [place] [address] [id number] [address] [place] [address] Sep, [facility] [place] [address] [id number] [address] [place] [address] Apr, [facility] [place], [facility] [address] [id number] [address] [place] [address] Mar, [facility] [place] [address] [id number] [address] [place] [address] Mar, [facility] [place] [address] [id number] [address] [place] [address] Jan, [facility] [place] [address] [id number] [address] [place] [phone] August, IMMUNIZATIONS No Known Immunizations SOCIAL HISTORY Never Assessed REASON FOR VISIT [facility] [place]ARE VITAL SIGNS MEDICATIONS Unknown Medications RESULTS No Results PROCEDURES No Known procedures INSTRUCTIONS MEDICATIONS ADMINISTERED No Known Medications
--- OUTSIDE RECORDS SUMMARY | 2019-10-26 16:17 | XMS REPORT ---
Author Author Ai Cobos Doctor Organization [facility] Address Unknown Phone Unavailable Care Team Providers Care Data Communications Software Consultant Name Role Phone Migration, Doctor Unavailable Unavailable PROBLEMS Type Condition ICD9-CM Code [id number] Code Onset Dates Condition S tatus SNOMED Code Problem Insomnia, unspecified 780.52 Active 549440050 Problem Anxiety state, unspecified 300.00 Act jeanne [id number] ALLERGIES No Information ENCOUNTERS Encounter Location Date Diagnosis [address] [id number] Jun, [address] [address] May, [address] [address] May, [address] [address] May, [facility] [address] [facility] [place] [id number] [address] [place] [phone] Jul, [facility] [address] [facility] [place] [id number] [address] [place] [phone] Jul, [facility] [address] [facility] [place] [id number] [address] [place] [phone] Sep, [facility] [address] [id number] [address] [place] [phone] Jun, [facility] [address] [id number] [address] [place] [phone] Mar, [facility] [address] [facility] [place] [id number] [address] [place] [phone] Mar, [facility] [address] [facility] [place] [id number] [address] [place] [phone] Jan, [facility] [address] [facility] [place] [id number] [address] [place] [phone] Jan, [facility] [address] [id number] [address] [place] [phone] Nov, [facility] [address] [id number] [address] [place] [phone] Jun, [facility] [address] [id number] [address] [place] [phone] Mar, [facility] [address] [id number] [address] [place] [phone] Sep, [facility] [address] [id number] [address] [place] [phone] Apr, [facility] [address] [id number] [address] [place] [phone] Mar, [facility] [address] [id number] [address] [place] [phone] Mar, [facility] [address] [id number] [address] [place] [phone] Jan, [facility] [address] [id number] [address] [place] [phone] August, IMMUNIZATIONS No Known Immunizations SOCIAL HISTORY Never Assessed REASON FOR VISIT [facility] [place] PLAN OF CARE VITAL SIGNS MEDICATIONS Medication Instructions Dosage Frequency Start Date End Date Duration S tatus buspirone 10 mg take 1 tablet (10 mg) by oral route 2 times per day Jan, Active Levemir Flexpen 100 unit/mL (3 mL) Injec t 15 Unit by Subcutaneous route 1 time per day Jun, Active NovoLog Flexpen 100 unit/mL Inject 11 Un it by Subcutaneous route 3 times per day Jun, Active RESULTS No Results PROCEDURES No Known procedures INSTRUCTIONS MEDICATIONS ADMINISTERED No Known Medications
--- OUTSIDE RECORDS SUMMARY | 2019-10-26 16:17 | XMS REPORT ---
Author Author Ai Cobos Doctor Organization [facility] Address Unknown Phone Unavailable Care Team Providers Care Detailer Furniture Name Role Phone Migration, Doctor Unavailable Unavailable PROBLEMS Type Condition ICD9-CM Code PFA35-[id number] Code Onset Dates Condition S tatus SNOMED Code Problem Insomnia, unspecified 780.52 Active [id number] Problem Anxiety state, unspecified 300.00 Act jeanne [id number] ALLERGIES No Information ENCOUNTERS Encounter Location Date Diagnosis [address] [id number] Jun, [address] [address] May, [address] [id number] May, [address] [address] May, [facility] [address] [facility] [id number] [address] [place] [phone] Jul, [facility] [address] [facility] [id number] [address] [place] [phone] Jul, [facility] [address] [facility] [id number] [address] [place] [phone] Sep, [facility] [address] [id number] [address] [place] [phone] Jun, [facility] [address] [id number] [address] [place] [phone] Mar, [facility] [address] [facility] [id number] [address] [place] [phone] Mar, [facility] [address] [facility] [id number] [address] [place] [phone] Jan, [facility] [address] [facility] [id number] [address] [place] [phone] Jan, [facility] [address] [id number] [address] [place] [phone] Nov, [facility] [address] [id number] [address] [place] [phone] Jun, [facility] [address] [id number] [address] [place] [phone] Mar, [facility] [address] [id number] [address] [place] [phone] Sep, [facility] [address] [id number] [address] [place] [phone] Apr, [facility] [address] [id number] [address] [place] [phone] Mar, [facility] [address] [id number] [address] [place] [phone] Mar, [facility] [address] [id number] [address] [place] [phone] Jan, [facility] [address] [id number] [address] [place] [phone] August, IMMUNIZATIONS No Known Immunizations SOCIAL HISTORY Never Assessed REASON FOR VISIT [facility] [place] PLAN OF CARE VITAL SIGNS MEDICATIONS Unknown Medications RESULTS No Results PROCEDURES No Known procedures INSTRUCTIONS MEDICATIONS ADMINISTERED No Known Medications
--- OUTSIDE RECORDS SUMMARY | 2019-10-26 16:18 | XMS REPORT | Continuity of Care Document ---
Author Organization Unknown Address Unknown Phone Unavailable Allergies Active Description Code Type Severity Reaction Onset Reported/Identified Relationship to Patient Clinical Status Yes No Known Drug Allergies [id number] Drug Allergy Mild N/A 12/02/2008 Medications There is no data. Problems Date Dx Coded Attending Type Code Diagnosis Diagnosed By 09/16/2009 250.02 BONNIE BETES II UNCONTROLLED 09/16/2009 787.01 ROMA SEA WITH VOMITING 09/16/2009 250.02 BONNIE BETES II UNCONTROLLED 09/16/2009 787.01 ROMA SEA WITH VOMITING 09/16/2009 250.02 BONNIE BETES II UNCONTROLLED 09/16/2009 787.01 ROMA SEA WITH VOMITING 03/20/2010 250.03 BONNIE BETES 1 UNCONTROLLED 03/20/2010 250.03 BONNIE BETES 1 UNCONTROLLED 03/20/2010 250.03 BONNIE BETES 1 UNCONTROLLED 04/08/2010 250.01 BONNIE BETES 1 CONTROLLED 04/08/2010 250.01 BONNIE BETES 1 CONTROLLED 04/08/2010 250.01 BONNIE BETES 1 CONTROLLED 05/27/2010 462 sore t hroat 05/27/2010 462 sore t hroat 05/27/2010 462 sore t hroat 10/01/2010 789.04 ABD OMINAL PAIN LEFT LOWER QUADRANT 10/01/2010 V72.42 PRE GNANCY TEST POSITIVE RESULT 10/01/2010 789.04 ABD OMINAL PAIN LEFT LOWER QUADRANT 10/01/2010 V72.42 PRE GNANCY TEST POSITIVE RESULT 10/01/2010 789.04 ABD OMINAL PAIN LEFT LOWER QUADRANT 10/01/2010 V72.42 PRE GNANCY TEST POSITIVE RESULT 01/25/2011 464.00 LAR YNGITIS ACUTE W/O OBSTRUCTION 01/25/2011 464.00 LAR YNGITIS ACUTE W/O OBSTRUCTION 01/25/2011 464.00 LAR YNGITIS ACUTE W/O OBSTRUCTION 02/28/2012 300.00 ANX IETY UNSPEC 02/28/2012 780.52 INS OMNIA UNSPECIFIED 02/28/2012 300.00 ANX IETY UNSPEC 02/28/2012 780.52 INS OMNIA UNSPECIFIED 02/28/2012 300.00 ANX IETY UNSPEC 02/28/2012 780.52 INS OMNIA UNSPECIFIED 06/28/2019 SHAAN TAN WELDER APPRENTICE GAS Ot K31.84 GASTROPARESIS 06/28/2019 SHAAN TAN WELDER APPRENTICE GAS Ot Z76.0 ENCOUNTER FOR ISSUE OF REPEAT PRESCRIPTI 06/29/2019 SHAAN TAN WELDER APPRENTICE GAS Ot K31.84 GASTROPARESIS 06/29/2019 SHAAN TAN WELDER APPRENTICE GAS Ot Z76.0 ENCOUNTER FOR ISSUE OF REPEAT PRESCRIPTI 07/01/2019 SHAAN TAN WELDER APPRENTICE GAS Ot K31.84 GASTROPARESIS 07/01/2019 SHAAN TAN WELDER APPRENTICE GAS Ot Z76.0 ENCOUNTER FOR ISSUE OF REPEAT PRESCRIPTI 07/04/2019 SELF GABRIEL MATTHEWS Ot K31.84 GASTROPARESIS 07/04/2019 SELF GABRIEL MATTHEWS Ot Z76.0 ENCOUNTER FOR ISSUE OF REPEAT PRESCRIPTI 07/09/2019 SHAAN TAN WELDER APPRENTICE GAS Ot K31.84 GASTROPARESIS 07/09/2019 SHAAN TAN WELDER APPRENTICE GAS Ot Z76.0 ENCOUNTER FOR ISSUE OF REPEAT PRESCRIPTI 07/09/2019 SHAAN TAN WELDER APPRENTICE GAS Ot K31.84 GASTROPARESIS 07/09/2019 SHAAN TAN WELDER APPRENTICE GAS Ot Z76.0 ENCOUNTER FOR ISSUE OF REPEAT PRESCRIPTI 07/09/2019 SELF GABRIEL MATTHEWS Ot K31.84 GASTROPARESIS 07/09/2019 SELF GABRIEL MATTHEWS Ot Z76.0 ENCOUNTER FOR ISSUE OF REPEAT PRESCRIPTI 07/09/2019 SHAAN TAN WELDER APPRENTICE GAS Ot K31.84 GASTROPARESIS 07/09/2019 SHAAN TAN WELDER APPRENTICE GAS Ot Z76.0 ENCOUNTER FOR ISSUE OF REPEAT PRESCRIPTI 07/09/2019 SHAAN TAN WELDER APPRENTICE GAS Ot K31.84 GASTROPARESIS 07/09/2019 SHAAN TAN WELDER APPRENTICE GAS Ot Z76.0 ENCOUNTER FOR ISSUE OF REPEAT PRESCRIPTI 07/09/2019 SELF GABRIEL MATTHEWS Ot K31.84 GASTROPARESIS 07/09/2019 SELF GABRIEL MATTHEWS Ot Z76.0 ENCOUNTER FOR ISSUE OF REPEAT PRESCRIPTI 07/16/2019 BRITNEY, SHAAN D WELDER APPRENTICE GAS Ot K31.84 GASTROPARESIS 07/16/2019 BRITNEY, SHAAN D WELDER APPRENTICE GAS Ot Z76.0 ENCOUNTER FOR ISSUE OF REPEAT PRESCRIPTI 07/16/2019 BRITNEY, SHAAN D WELDER APPRENTICE GAS Ot K31.84 GASTROPARESIS 07/16/2019 BRITNEY, SHAAN D WELDER APPRENTICE GAS Ot Z76.0 ENCOUNTER FOR ISSUE OF REPEAT PRESCRIPTI 07/16/2019 SELF GABRIEL MATTHEWS Ot K31.84 GASTROPARESIS 07/16/2019 SELF GABRIEL MATTHEWS Ot Z76.0 ENCOUNTER FOR ISSUE OF REPEAT PRESCRIPTI 07/16/2019 SELF GABRIEL MATTHEWS Ot K31.84 GASTROPARESIS 07/16/2019 SELF GABRIEL MATTHEWS Ot Z76.0 ENCOUNTER FOR ISSUE OF REPEAT PRESCRIPTI 07/17/2019 BRITNEY, SHAAN D WELDER APPRENTICE GAS Ot K31.84 GASTROPARESIS 07/17/2019 BRITNEY, SHAAN D WELDER APPRENTICE GAS Ot R11.2 NAUSEA WITH VOMITING, UNSPECIFIED 07/17/2019 BRITNEY, SHAAN D WELDER APPRENTICE GAS Ot K31.84 GASTROPARESIS 07/17/2019 BRITNEY, SHAAN D WELDER APPRENTICE GAS Ot R11.2 NAUSEA WITH VOMITING, UNSPECIFIED 07/22/2019 BRITNEY, SHAAN D WELDER APPRENTICE GAS Ot K31.84 GASTROPARESIS 07/22/2019 BRITNEY, SHAAN D WELDER APPRENTICE GAS Ot R11.2 NAUSEA WITH VOMITING, UNSPECIFIED 07/23/2019 BRITNEY, SHAAN D WELDER APPRENTICE GAS Ot K31.84 GASTROPARESIS 07/23/2019 BRITNEY, SHAAN D WELDER APPRENTICE GAS Ot Z76.0 ENCOUNTER FOR ISSUE OF REPEAT PRESCRIPTI 07/23/2019 BRITNEY, SHAAN D WELDER APPRENTICE GAS Ot K31.84 GASTROPARESIS 07/23/2019 BRITNEY, SHAAN D WELDER APPRENTICE GAS Ot Z76.0 ENCOUNTER FOR ISSUE OF REPEAT PRESCRIPTI 07/23/2019 SELF GABRIEL MATTHEWS Ot K31.84 GASTROPARESIS 07/23/2019 SELF GABRIEL MATTHEWS Ot Z76.0 ENCOUNTER FOR ISSUE OF REPEAT PRESCRIPTI 07/23/2019 SELF GABRIEL MATTHEWS Ot K31.84 GASTROPARESIS 07/23/2019 SELF GABRIEL MATTHEWS Ot Z76.0 ENCOUNTER FOR ISSUE OF REPEAT PRESCRIPTI 07/23/2019 BRITNEY, SHAAN D WELDER APPRENTICE GAS Ot K31.84 GASTROPARESIS 07/23/2019 BRITNEY, SHAAN D WELDER APPRENTICE GAS Ot R11.2 NAUSEA WITH VOMITING, UNSPECIFIED 07/30/2019 BRITNEY, SHAAN D WELDER APPRENTICE GAS Ot K31.84 GASTROPARESIS 07/30/2019 BRITNEY, SHAAN D WELDER APPRENTICE GAS Ot Z76.0 ENCOUNTER FOR ISSUE OF REPEAT PRESCRIPTI 07/30/2019 BRITNEY, SHAAN D WELDER APPRENTICE GAS Ot K31.84 GASTROPARESIS 07/30/2019 BRITNEY, SHAAN D WELDER APPRENTICE GAS Ot Z76.0 ENCOUNTER FOR ISSUE OF REPEAT PRESCRIPTI 07/30/2019 SELF GABRIEL MATTHEWS Ot K31.84 GASTROPARESIS 07/30/2019 SELF GABRIEL MATTHEWS Ot Z76.0 ENCOUNTER FOR ISSUE OF REPEAT PRESCRIPTI 07/30/2019 SELF GABRIEL MATTHEWS Ot K31.84 GASTROPARESIS 07/30/2019 SELF GABRIEL MATTHEWS Ot Z76.0 ENCOUNTER FOR ISSUE OF REPEAT PRESCRIPTI 07/30/2019 BRITNEY, SHAAN D WELDER APPRENTICE GAS Ot K31.84 GASTROPARESIS 07/30/2019 BRITNEY, SHAAN D WELDER APPRENTICE GAS Ot R11.2 NAUSEA WITH VOMITING, UNSPECIFIED 07/30/2019 BRITNEY, SHAAN D WELDER APPRENTICE GAS Ot K31.84 GASTROPARESIS 07/30/2019 BRITNEY, SHAAN D WELDER APPRENTICE GAS Ot Z76.0 ENCOUNTER FOR ISSUE OF REPEAT PRESCRIPTI 07/30/2019 BRITNEY, SHAAN D WELDER APPRENTICE GAS Ot K31.84 GASTROPARESIS 07/30/2019 BRITNEY, SHAAN D WELDER APPRENTICE GAS Ot Z76.0 ENCOUNTER FOR ISSUE OF REPEAT PRESCRIPTI 07/30/2019 BRITNEY, SHAAN D WELDER APPRENTICE GAS Ot K31.84 GASTROPARESIS 07/30/2019 BRITNEY, SHAAN D WELDER APPRENTICE GAS Ot Z76.0 ENCOUNTER FOR ISSUE OF REPEAT PRESCRIPTI 07/30/2019 SELF GABRIEL MATTHEWS Ot K31.84 GASTROPARESIS 07/30/2019 SELF GABRIEL MATTHEWS Ot Z76.0 ENCOUNTER FOR ISSUE OF REPEAT PRESCRIPTI 07/30/2019 SELF GABRIEL MATTHEWS Ot K31.84 GASTROPARESIS 07/30/2019 SELF GABRIEL MATTHEWS Ot Z76.0 ENCOUNTER FOR ISSUE OF REPEAT PRESCRIPTI 07/30/2019 BRITNEY, SHAAN D WELDER APPRENTICE GAS Ot K31.84 GASTROPARESIS 07/30/2019 BRITNEY, SHAAN D WELDER APPRENTICE GAS Ot R11.2 NAUSEA WITH VOMITING, UNSPECIFIED 07/30/2019 BRITNEY, SHAAN D WELDER APPRENTICE GAS Ot K31.84 GASTROPARESIS 07/30/2019 BRITNEY, SHAAN D WELDER APPRENTICE GAS Ot Z76.0 ENCOUNTER FOR ISSUE OF REPEAT PRESCRIPTI 07/30/2019 BRITNEY, SHAAN D WELDER APPRENTICE GAS Ot K31.84 GASTROPARESIS 07/30/2019 BRITNEY, SHAAN D WELDER APPRENTICE GAS Ot Z76.0 ENCOUNTER FOR ISSUE OF REPEAT PRESCRIPTI 07/30/2019 BRITNEY, SHAAN D WELDER APPRENTICE GAS Ot K31.84 GASTROPARESIS 07/30/2019 BRITNEY, SHAAN D WELDER APPRENTICE GAS Ot Z76.0 ENCOUNTER FOR ISSUE OF REPEAT PRESCRIPTI 07/30/2019 SELF GABRIEL MATTHEWS Ot K31.84 GASTROPARESIS 07/30/2019 SELF GABRIEL MATTHEWS Ot Z76.0 ENCOUNTER FOR ISSUE OF REPEAT PRESCRIPTI 07/30/2019 SELF GABRIEL MATTHEWS Ot K31.84 GASTROPARESIS 07/30/2019 SELF GABRIEL MATTHEWS Ot Z76.0 ENCOUNTER FOR ISSUE OF REPEAT PRESCRIPTI 07/30/2019 BRITNEY, SHAAN D WELDER APPRENTICE GAS Ot K31.84 GASTROPARESIS 07/30/2019 BRITNEY, SHAAN D WELDER APPRENTICE GAS Ot R11.2 NAUSEA WITH VOMITING, UNSPECIFIED 07/30/2019 BRITNEY, SHAAN D WELDER APPRENTICE GAS Ot K31.84 GASTROPARESIS 07/30/2019 BRITNEY, SHAAN D WELDER APPRENTICE GAS Ot Z76.0 ENCOUNTER FOR ISSUE OF REPEAT PRESCRIPTI 07/31/2019 BRITNEY, SHAAN D WELDER APPRENTICE GAS Ot K31.84 GASTROPARESIS 07/31/2019 BRITNEY, SHAAN D WELDER APPRENTICE GAS Ot Z76.0 ENCOUNTER FOR ISSUE OF REPEAT PRESCRIPTI 07/31/2019 BRITNEY, SHAAN D WELDER APPRENTICE GAS Ot K31.84 GASTROPARESIS 07/31/2019 BRITNEY, SHAAN D WELDER APPRENTICE GAS Ot Z76.0 ENCOUNTER FOR ISSUE OF REPEAT PRESCRIPTI 07/31/2019 SELF GABRIEL MATTHEWS Ot K31.84 GASTROPARESIS 07/31/2019 SELF GABRIEL MATTHEWS Ot Z76.0 ENCOUNTER FOR ISSUE OF REPEAT PRESCRIPTI 07/31/2019 SELF GABRIEL MATTHEWS Ot K31.84 GASTROPARESIS 07/31/2019 SELF GABRIEL MATTHEWS Ot Z76.0 ENCOUNTER FOR ISSUE OF REPEAT PRESCRIPTI 07/31/2019 BRITNEY, SHAAN D WELDER APPRENTICE GAS Ot K31.84 GASTROPARESIS 07/31/2019 BRITNEY, SHAAN D WELDER APPRENTICE GAS Ot R11.2 NAUSEA WITH VOMITING, UNSPECIFIED 07/31/2019 BRITNEY, SHAAN D WELDER APPRENTICE GAS Ot K31.84 GASTROPARESIS 07/31/2019 BRITNEY, SHAAN D WELDER APPRENTICE GAS Ot Z76.0 ENCOUNTER FOR ISSUE OF REPEAT PRESCRIPTI 08/06/2019 BRITNEY, SHAAN D WELDER APPRENTICE GAS Ot K31.84 GASTROPARESIS 08/06/2019 BRITNEY, SHAAN D WELDER APPRENTICE GAS Ot Z76.0 ENCOUNTER FOR ISSUE OF REPEAT PRESCRIPTI 08/06/2019 BRITNEY, SHAAN D WELDER APPRENTICE GAS Ot K31.84 GASTROPARESIS 08/06/2019 BRITNEY, SHAAN D WELDER APPRENTICE GAS Ot Z76.0 ENCOUNTER FOR ISSUE OF REPEAT PRESCRIPTI 08/06/2019 SELF GABRIEL MATTHEWS Ot K31.84 GASTROPARESIS 08/06/2019 SELF GABRIEL MATTHEWS Ot Z76.0 ENCOUNTER FOR ISSUE OF REPEAT PRESCRIPTI 08/06/2019 SELF GABRIEL MATTHEWS Ot K31.84 GASTROPARESIS 08/06/2019 SELF GABRIEL MATTHEWS Ot Z76.0 ENCOUNTER FOR ISSUE OF REPEAT PRESCRIPTI 08/06/2019 BRITNEY, SHAAN D WELDER APPRENTICE GAS Ot K31.84 GASTROPARESIS 08/06/2019 BRITNEY, SHAAN D WELDER APPRENTICE GAS Ot R11.2 NAUSEA WITH VOMITING, UNSPECIFIED 08/06/2019 BRITNEY, SHAAN D WELDER APPRENTICE GAS Ot K31.84 GASTROPARESIS 08/06/2019 BRITNEY, SHAAN D WELDER APPRENTICE GAS Ot Z76.0 ENCOUNTER FOR ISSUE OF REPEAT PRESCRIPTI 08/06/2019 BRITNEY, SHAAN D WELDER APPRENTICE GAS Ot K31.84 GASTROPARESIS 08/06/2019 BIRTNEY, SHAAN D WELDER APPRENTICE GAS Ot R11.2 NAUSEA WITH VOMITING, UNSPECIFIED 08/06/2019 BRITNEY, SHAAN D WELDER APPRENTICE GAS Ot Z76.0 ENCOUNTER FOR ISSUE OF REPEAT PRESCRIPTI 08/07/2019 BRITNEY, SHAAN D WELDER APPRENTICE GAS Ot K31.84 GASTROPARESIS 08/07/2019 BRITNEY, SHAAN D WELDER APPRENTICE GAS Ot R11.2 NAUSEA WITH VOMITING, UNSPECIFIED 08/13/2019 BRITNEY, SHAAN D WELDER APPRENTICE GAS Ot K31.84 GASTROPARESIS 08/13/2019 BRITNEY, SHAAN D WELDER APPRENTICE GAS Ot Z76.0 ENCOUNTER FOR ISSUE OF REPEAT PRESCRIPTI 08/13/2019 BRITNEY, SHAAN D WELDER APPRENTICE GAS Ot K31.84 GASTROPARESIS 08/13/2019 BRITNEY, SHAAN D WELDER APPRENTICE GAS Ot Z76.0 ENCOUNTER FOR ISSUE OF REPEAT PRESCRIPTI 08/13/2019 SELF GABRIEL MATTHEWS Ot K31.84 GASTROPARESIS 08/13/2019 SELF GABRIEL MATTHEWS Ot Z76.0 ENCOUNTER FOR ISSUE OF REPEAT PRESCRIPTI 08/13/2019 SELF GABRIEL MATTHEWS Ot K31.84 GASTROPARESIS 08/13/2019 SELF GABRIEL MATTHEWS Ot Z76.0 ENCOUNTER FOR ISSUE OF REPEAT PRESCRIPTI 08/13/2019 BRITNEY, SHAAN D WELDER APPRENTICE GAS Ot K31.84 GASTROPARESIS 08/13/2019 BRITNEY, SHAAN D WELDER APPRENTICE GAS Ot R11.2 NAUSEA WITH VOMITING, UNSPECIFIED 08/13/2019 BRITNEY, SHAAN D WELDER APPRENTICE GAS Ot K31.84 GASTROPARESIS 08/13/2019 BRITNEY, SHAAN D WELDER APPRENTICE GAS Ot Z76.0 ENCOUNTER FOR ISSUE OF REPEAT PRESCRIPTI 08/13/2019 BRITNEY, SHAAN D WELDER APPRENTICE GAS Ot K31.84 GASTROPARESIS 08/13/2019 BRITNEY, SHAAN D WELDER APPRENTICE GAS Ot R11.2 NAUSEA WITH VOMITING, UNSPECIFIED 08/13/2019 BRITNEY, SHAAN D WELDER APPRENTICE GAS Ot Z76.0 ENCOUNTER FOR ISSUE OF REPEAT PRESCRIPTI 08/13/2019 BRITNEY, SHAAN D WELDER APPRENTICE GAS Ot K31.84 GASTROPARESIS 08/13/2019 BRITNEY, SHAAN D WELDER APPRENTICE GAS Ot R11.2 NAUSEA WITH VOMITING, UNSPECIFIED 08/14/2019 SELF GABRIEL MATTHEWS Ot K31.84 GASTROPARESIS 08/15/2019 SELF GABRIEL MATTHEWS Ot K31.84 GASTROPARESIS 08/15/2019 BRITNEY, SHAAN D WELDER APPRENTICE GAS Ot K31.84 GASTROPARESIS 08/15/2019 BRITNEY, SHAAN D WELDER APPRENTICE GAS Ot Z76.0 ENCOUNTER FOR ISSUE OF REPEAT PRESCRIPTI 08/15/2019 BRITNEY, SHAAN D WELDER APPRENTICE GAS Ot K31.84 GASTROPARESIS 08/15/2019 BRITNEY, SHAAN D WELDER APPRENTICE GAS Ot Z76.0 ENCOUNTER FOR ISSUE OF REPEAT PRESCRIPTI 08/15/2019 SELF GABRIEL MATTHEWS Ot K31.84 GASTROPARESIS 08/15/2019 SELF GABRIEL MATTHEWS Ot Z76.0 ENCOUNTER FOR ISSUE OF REPEAT PRESCRIPTI 08/15/2019 SELF GABRIEL MATTHEWS Ot K31.84 GASTROPARESIS 08/15/2019 SELF GABRIEL MATTHEWS Ot Z76.0 ENCOUNTER FOR ISSUE OF REPEAT PRESCRIPTI 08/15/2019 BRITNEY, SHAAN D WELDER APPRENTICE GAS Ot K31.84 GASTROPARESIS 08/15/2019 BRITNEY, SHAAN D WELDER APPRENTICE GAS Ot R11.2 NAUSEA WITH VOMITING, UNSPECIFIED 08/15/2019 BRITNEY, SHAAN D WELDER APPRENTICE GAS Ot K31.84 GASTROPARESIS 08/15/2019 BRITNYE, SHAAN D WELDER APPRENTICE GAS Ot Z76.0 ENCOUNTER FOR ISSUE OF REPEAT PRESCRIPTI 08/15/2019 BRITNEY, SHAAN D WELDER APPRENTICE GAS Ot K31.84 GASTROPARESIS 08/15/2019 BRITNEY, SHAAN D WELDER APPRENTICE GAS Ot R11.2 NAUSEA WITH VOMITING, UNSPECIFIED 08/15/2019 BRITNEY, SHAAN D WELDER APPRENTICE GAS Ot Z76.0 ENCOUNTER FOR ISSUE OF REPEAT PRESCRIPTI 08/15/2019 BRITNEY, SHAAN D WELDER APPRENTICE GAS Ot K31.84 GASTROPARESIS 08/15/2019 BRITNEY, SHAAN D WELDER APPRENTICE GAS Ot R11.2 NAUSEA WITH VOMITING, UNSPECIFIED 08/15/2019 SELF GABRIEL MATTHEWS Ot K31.84 GASTROPARESIS 08/20/2019 BRITNEY, SHAAN D WELDER APPRENTICE GAS Ot K31.84 GASTROPARESIS 08/20/2019 BRITNEY, SHAAN D WELDER APPRENTICE GAS Ot Z76.0 ENCOUNTER FOR ISSUE OF REPEAT PRESCRIPTI 08/20/2019 BRITNEY, SHAAN D WELDER APPRENTICE GAS Ot K31.84 GASTROPARESIS 08/20/2019 BRITNEY, SHAAN D WELDER APPRENTICE GAS Ot Z76.0 ENCOUNTER FOR ISSUE OF REPEAT PRESCRIPTI 08/20/2019 SELF GABRIEL MATTHEWS Ot K31.84 GASTROPARESIS 08/20/2019 SELF GABRIEL MATTHEWS Ot Z76.0 ENCOUNTER FOR ISSUE OF REPEAT PRESCRIPTI 08/20/2019 SELF GABRIEL MATTHEWS Ot K31.84 GASTROPARESIS 08/20/2019 SELF GABRIEL MATTHEWS Ot Z76.0 ENCOUNTER FOR ISSUE OF REPEAT PRESCRIPTI 08/20/2019 BRITNEY, SHAAN D WELDER APPRENTICE GAS Ot K31.84 GASTROPARESIS 08/20/2019 BRITNEY, SHAAN D WELDER APPRENTICE GAS Ot R11.2 NAUSEA WITH VOMITING, UNSPECIFIED 08/20/2019 BRITNEY, SHAAN D WELDER APPRENTICE GAS Ot K31.84 GASTROPARESIS 08/20/2019 BRITNEY, SHAAN D WELDER APPRENTICE GAS Ot Z76.0 ENCOUNTER FOR ISSUE OF REPEAT PRESCRIPTI 08/20/2019 BRITNEY, SHAAN D WELDER APPRENTICE GAS Ot K31.84 GASTROPARESIS 08/20/2019 BRITNEY, SHAAN D WELDER APPRENTICE GAS Ot R11.2 NAUSEA WITH VOMITING, UNSPECIFIED 08/20/2019 BRITNEY, SHAAN D WELDER APPRENTICE GAS Ot Z76.0 ENCOUNTER FOR ISSUE OF REPEAT PRESCRIPTI 08/20/2019 BRITNEY, SHAAN D WELDER APPRENTICE GAS Ot K31.84 GASTROPARESIS 08/20/2019 BRITNEY, SHAAN D WELDER APPRENTICE GAS Ot R11.2 NAUSEA WITH VOMITING, UNSPECIFIED 08/20/2019 SELF GABRIEL MATTHEWS Ot K31.84 GASTROPARESIS 08/20/2019 BRITNEY, SHAAN D WELDER APPRENTICE GAS Ot K31.84 GASTROPARESIS 08/20/2019 BRITNEY, SHAAN D WELDER APPRENTICE GAS Ot Z76.0 ENCOUNTER FOR ISSUE OF REPEAT PRESCRIPTI 08/20/2019 BRITNEY, SHAAN D WELDER APPRENTICE GAS Ot K31.84 GASTROPARESIS 08/20/2019 BRITNEY, SHAAN D WELDER APPRENTICE GAS Ot Z76.0 ENCOUNTER FOR ISSUE OF REPEAT PRESCRIPTI 08/20/2019 SELF GABRIEL MATTHEWS Ot K31.84 GASTROPARESIS 08/20/2019 SELF GABRIEL MATTHEWS Ot Z76.0 ENCOUNTER FOR ISSUE OF REPEAT PRESCRIPTI 08/20/2019 SELF GABRIEL MATTHEWS Ot K31.84 GASTROPARESIS 08/20/2019 SELF GABRIEL MATTHEWS Ot Z76.0 ENCOUNTER FOR ISSUE OF REPEAT PRESCRIPTI 08/20/2019 BRITNEY, SHAAN D WELDER APPRENTICE GAS Ot K31.84 GASTROPARESIS 08/20/2019 BRITNEY, SHAAN D WELDER APPRENTICE GAS Ot R11.2 NAUSEA WITH VOMITING, UNSPECIFIED 08/20/2019 BRITNEY, SHAAN D WELDER APPRENTICE GAS Ot K31.84 GASTROPARESIS 08/20/2019 BRITNEY, SHAAN D WELDER APPRENTICE GAS Ot Z76.0 ENCOUNTER FOR ISSUE OF REPEAT PRESCRIPTI 08/20/2019 BRITNEY, SHAAN D WELDER APPRENTICE GAS Ot K31.84 GASTROPARESIS 08/20/2019 BRITNEY, SHAAN D WELDER APPRENTICE GAS Ot R11.2 NAUSEA WITH VOMITING, UNSPECIFIED 08/20/2019 BRITNEY, SHAAN D WELDER APPRENTICE GAS Ot Z76.0 ENCOUNTER FOR ISSUE OF REPEAT PRESCRIPTI 08/20/2019 BRITNEY, SHAAN D WELDER APPRENTICE GAS Ot K31.84 GASTROPARESIS 08/20/2019 BRITNEY, SHAAN D WELDER APPRENTICE GAS Ot R11.2 NAUSEA WITH VOMITING, UNSPECIFIED 08/20/2019 SELF GABRIEL MATTHEWS Ot K31.84 GASTROPARESIS 08/21/2019 BRITNEY, SHAAN D WELDER APPRENTICE GAS Ot K31.84 GASTROPARESIS 08/21/2019 BRITNEY, SHAAN D WELDER APPRENTICE GAS Ot Z76.0 ENCOUNTER FOR ISSUE OF REPEAT PRESCRIPTI 08/21/2019 BRITNEY, SHAAN D WELDER APPRENTICE GAS Ot K31.84 GASTROPARESIS 08/21/2019 BRITNEY, SAHAN D WELDER APPRENTICE GAS Ot Z76.0 ENCOUNTER FOR ISSUE OF REPEAT PRESCRIPTI 08/21/2019 SELF GABRIEL MATTHEWS Ot K31.84 GASTROPARESIS 08/21/2019 SELF GABRIEL MATTHEWS Ot Z76.0 ENCOUNTER FOR ISSUE OF REPEAT PRESCRIPTI 08/21/2019 SELF GABRIEL MATTHEWS Ot K31.84 GASTROPARESIS 08/21/2019 SELF GABRIEL MATTHEWS Ot Z76.0 ENCOUNTER FOR ISSUE OF REPEAT PRESCRIPTI 08/21/2019 BRITNEY, SHAAN D WELDER APPRENTICE GAS Ot K31.84 GASTROPARESIS 08/21/2019 BRITNEY, SHAAN D WELDER APPRENTICE GAS Ot R11.2 NAUSEA WITH VOMITING, UNSPECIFIED 08/21/2019 BRITNEY, SHAAN D WELDER APPRENTICE GAS Ot K31.84 GASTROPARESIS 08/21/2019 BRITNEY, SHAAN D WELDER APPRENTICE GAS Ot Z76.0 ENCOUNTER FOR ISSUE OF REPEAT PRESCRIPTI 08/21/2019 BRITNEY, SHAAN D WELDER APPRENTICE GAS Ot K31.84 GASTROPARESIS 08/21/2019 BRITNEY, SHAAN D WELDER APPRENTICE GAS Ot R11.2 NAUSEA WITH VOMITING, UNSPECIFIED 08/21/2019 BRITNEY, SHAAN D WELDER APPRENTICE GAS Ot Z76.0 ENCOUNTER FOR ISSUE OF REPEAT PRESCRIPTI 08/21/2019 BRITNEY, SHAAN D WELDER APPRENTICE GAS Ot K31.84 GASTROPARESIS 08/21/2019 BRITNEY, SHAAN D WELDER APPRENTICE GAS Ot R11.2 NAUSEA WITH VOMITING, UNSPECIFIED 08/21/2019 SELF GABRIEL MATTHEWS Ot K31.84 GASTROPARESIS 08/21/2019 BRITNEY, SHAAN D WELDER APPRENTICE GAS Ot K31.84 GASTROPARESIS 08/21/2019 BRITNEY, SHAAN D WELDER APPRENTICE GAS Ot Z76.0 ENCOUNTER FOR ISSUE OF REPEAT PRESCRIPTI 08/21/2019 BRITNEY, SHAAN D WELDER APPRENTICE GAS Ot K31.84 GASTROPARESIS 08/21/2019 BRITNEY, SHAAN D WELDER APPRENTICE GAS Ot Z76.0 ENCOUNTER FOR ISSUE OF REPEAT PRESCRIPTI 08/21/2019 SELF GABRIEL MATTHEWS Ot K31.84 GASTROPARESIS 08/21/2019 SELF GABRIEL MATTHEWS Ot Z76.0 ENCOUNTER FOR ISSUE OF REPEAT PRESCRIPTI 08/21/2019 SELF GABRIEL MATTHEWS Ot K31.84 GASTROPARESIS 08/21/2019 SELF GABRIEL MATTHEWS Ot Z76.0 ENCOUNTER FOR ISSUE OF REPEAT PRESCRIPTI 08/21/2019 BRITNEY, SHAAN D WELDER APPRENTICE GAS Ot K31.84 GASTROPARESIS 08/21/2019 BRITNEY, SHAAN D WELDER APPRENTICE GAS Ot R11.2 NAUSEA WITH VOMITING, UNSPECIFIED 08/21/2019 BRITNEY, SHAAN D WELDER APPRENTICE GAS Ot K31.84 GASTROPARESIS 08/21/2019 BRITNEY, SHAAN D WELDER APPRENTICE GAS Ot Z76.0 ENCOUNTER FOR ISSUE OF REPEAT PRESCRIPTI 08/21/2019 BRITNEY, SHAAN D WELDER APPRENTICE GAS Ot K31.84 GASTROPARESIS 08/21/2019 BRITNEY, SHAAN D WELDER APPRENTICE GAS Ot R11.2 NAUSEA WITH VOMITING, UNSPECIFIED 08/21/2019 BRITNEY, SHAAN D WELDER APPRENTICE GAS Ot Z76.0 ENCOUNTER FOR ISSUE OF REPEAT PRESCRIPTI 08/21/2019 BRITNEY, SHAAN D WELDER APPRENTICE GAS Ot K31.84 GASTROPARESIS 08/21/2019 BRITNEY, SHAAN D WELDER APPRENTICE GAS Ot R11.2 NAUSEA WITH VOMITING, UNSPECIFIED 08/21/2019 SELF GABRIEL MATTHEWS Ot K31.84 GASTROPARESIS 08/21/2019 BRITNEY, SHAAN D WELDER APPRENTICE GAS Ot K31.84 GASTROPARESIS 08/21/2019 BRITNEY, SHAAN D WELDER APPRENTICE GAS Ot Z76.0 ENCOUNTER FOR ISSUE OF REPEAT PRESCRIPTI 08/21/2019 BRITNEY, SHAAN D WELDER APPRENTICE GAS Ot K31.84 GASTROPARESIS 08/21/2019 BRITNEY, SHAAN D WELDER APPRENTICE GAS Ot Z76.0 ENCOUNTER FOR ISSUE OF REPEAT PRESCRIPTI 08/21/2019 SELF GABRIEL MATTHEWS Ot K31.84 GASTROPARESIS 08/21/2019 SELF GABRIEL MATTHEWS Ot Z76.0 ENCOUNTER FOR ISSUE OF REPEAT PRESCRIPTI 08/21/2019 SELF GABRIEL MATTHEWS Ot K31.84 GASTROPARESIS 08/21/2019 SELF GABRIEL MATTHEWS Ot Z76.0 ENCOUNTER FOR ISSUE OF REPEAT PRESCRIPTI 08/21/2019 BRITNEY, SHAAN D WELDER APPRENTICE GAS Ot K31.84 GASTROPARESIS 08/21/2019 BRITNEY, SHAAN D WELDER APPRENTICE GAS Ot R11.2 NAUSEA WITH VOMITING, UNSPECIFIED 08/21/2019 BRITNEY, SHAAN D WELDER APPRENTICE GAS Ot K31.84 GASTROPARESIS 08/21/2019 BRITNEY, SHAAN D WELDER APPRENTICE GAS Ot Z76.0 ENCOUNTER FOR ISSUE OF REPEAT PRESCRIPTI 08/21/2019 BRITNEY, SHAAN D WELDER APPRENTICE GAS Ot K31.84 GASTROPARESIS 08/21/2019 BRITNEY, SHAAN D WELDER APPRENTICE GAS Ot R11.2 NAUSEA WITH VOMITING, UNSPECIFIED 08/21/2019 BRITNEY, SHAAN D WELDER APPRENTICE GAS Ot Z76.0 ENCOUNTER FOR ISSUE OF REPEAT PRESCRIPTI 08/21/2019 BRITNEY, SHAAN D WELDER APPRENTICE GAS Ot K31.84 GASTROPARESIS 08/21/2019 BRITNEY, SHAAN D WELDER APPRENTICE GAS Ot R11.2 NAUSEA WITH VOMITING, UNSPECIFIED 08/21/2019 SELF GABRIEL MATTHEWS Ot K31.84 GASTROPARESIS 08/21/2019 SELF GABRIEL MATTHEWS Ot K31.84 GASTROPARESIS Procedures Code Description [place] [address] A1C (IN-HOUSE) 10/16/2012 Results Test Result Range CMP - 11/08/18 07:30 GLUCOSE 239 mg/dL 65-99 UREA NITROGEN (BUN) 17 mg/dL 7-25 CREATININE 0.54 mg/dL 0.50-1.10 eGFR NON-AFR. [place] 123 mL/min/1.73m2 > OR = 60 eGFR 143 mL/min/1.73m2 > OR = 60 BUN/CREATININE RATIO NOT APPLICABLE (calc) 6-22 SODIUM 139 mmol/L 135-146 POTASSIUM 4.6 mmol/L 3.5-5.3 CHLORIDE 94 mmol/L 98-110 CARBON DIOXIDE 33 mmol/L 20-32 CALCIUM 10.1 mg/dL 8.6-10.2 PROTEIN, TOTAL 7.0 g/dL 6.1-8.1 ALBUMIN 4.0 g/dL 3.6-5.1 GLOBULIN 3.0 g/dL (calc) 1.9-3.7 ALBUMIN/GLOBULIN RATIO 1.3 (calc) 1.0-2. 5 BILIRUBIN, TOTAL 0.4 mg/dL 0.2-1.2 ALKALINE PHOSPHATASE 69 U/L 33-115 AST 11 U/L 10-30 ALT 12 U/L 6-29 CULTURE, URINE - 11/13/18 19:19 CULTURE, URINE, ROUTINE NRG Complete blood count (CBC) with automate d white blood cell (WBC) differential - 06/26/19 16:30 Blood leukocytes automated count (number/volume) 5.1 10*3/uL 4.3-11.0 Blood erythrocytes automated count (number/volume) 3.54 10*6/uL 4.35-5.85 Venous blood hemoglobin measurement (mass/volume) 11.0 g/dL 11.5-16.0 Blood hematocrit (volume fraction) 34 % 35-52 Automated erythrocyte mean corpuscular volume 96 [ foz_us] 80-99 Automated erythrocyte mean corpuscular h emoglobin (mass per erythrocyte) 31 pg 25-34 Automated erythrocyte mean corpuscular h emoglobin concentration measurement (mass/volume) 32 g/dL 32-36 Automated erythrocyte distribution width ratio 15. 1 % 10.0- 14.5 Automated blood platelet count (count/volume) 179 10*3/uL 130-400 Automated blood platelet mean volume measurement 12.7 [foz_us] 7.4-10.4 Automated blood neutrophils/100 leukocytes 42 % 42-75 Automated blood lymphocytes/100 leukocytes 44 % 12-44 Blood monocytes/100 leukocytes 8 % 0-12 Automated blood eosinophils/100 leukocytes 5 % 0-10 Automated blood basophils/100 leukocytes 0 % 0-10 Blood neutrophils automated count (number/volume) 2.1 10*3 1.8-7.8 Blood lymphocytes automated count (number/volume) 2.3 10*3 1.0-4.0 Blood monocytes automated count (number/volume) 0. 4 10*3 0.0-1.0 Automated eosinophil count 0.3 10*3/uL 0 .0-0.3 Automated blood basophil count (count/volume) 0.0 10*3/uL 0.0-0.1 Comprehensive metabolic panel - 06/26/19 16:30 Serum or plasma sodium measurement (moles/volume) 135 mmol/L 135-145 Serum or plasma potassium measurement (moles/volume) 5.8 mmol/L 3.6-5.0 Serum or plasma chloride measurement (moles/volume) 100 mmol/L 98-107 Carbon dioxide 25 mmol/L 21-32 Serum or plasma anion gap determination (moles/volume) 10 mmol/L 5-14 Serum or plasma urea nitrogen measurement (mass/volume ) 18 mg/dL 7-18 Serum or plasma creatinine measurement (mass/volume) 0.43 mg/dL 0.60-1.30 Serum or plasma urea nitrogen/creatinine mass ratio 42 NRG Serum or plasma creatinine measurement w ith calculation of estimated glomerular filtration rate > NRG Serum or plasma glucose measurement (mass/volume) 619 mg/dL 70-105 Serum or plasma calcium measurement (mass/volume) 9.4 mg/dL 8.5-10.1 Serum or plasma total bilirubin measurement (mass/volu me) 0.3 mg/dL 0.1-1.0 Serum or plasma alkaline phosphatase [place] surement (enzymatic activity/volume) 55 U/L 40-136 Serum or plasma aspartate aminotransfera se measurement (enzymatic activity/volume) 32 U/L 5-34 Serum or plasma alanine aminotransferase measurement (enzymatic activity/volume) 20 U/L 0-55 Serum or plasma protein measurement (mass/volume) 6.1 g/dL 6.4-8.2 Serum or plasma albumin measurement (mass/volume) 3.4 g/dL 3.2-4.5 CALCIUM CORRECTED 9.9 mg/dL 8.5-10.1 Serum or plasma phosphate measurement (m ass/volume) - 06/26/19 16:30 Serum or plasma phosphate measurement (mass/volume) 4.6 mg/dL 2.3-4.7 Magnesium - 06/26/19 16:30 Magnesium 2.3 mg/dL 1.6-2.4 Comprehensive metabolic panel - 06/27/19 14:00 Serum or plasma sodium measurement (moles/volume) 141 mmol/L 135-145 Serum or plasma potassium measurement (moles/volume) 5.0 mmol/L 3.6-5.0 Serum or plasma chloride measurement (moles/volume) 104 mmol/L 98-107 Carbon dioxide 28 mmol/L 21-32 Serum or plasma anion gap determination (moles/volume) 9 mmol/L 5-14 Serum or plasma urea nitrogen measurement (mass/volume ) 19 mg/dL 7-18 Serum or plasma creatinine measurement (mass/volume) 0.40 mg/dL 0.60-1.30 Serum or plasma urea nitrogen/creatinine mass ratio 48 NRG Serum or plasma creatinine measurement w ith calculation of estimated glomerular filtration rate > NRG Serum or plasma glucose measurement (mass/volume) 124 mg/dL 70-105 Serum or plasma calcium measurement (mass/volume) 9.2 mg/dL 8.5-10.1 Serum or plasma total bilirubin measurement (mass/volu me) 0.3 mg/dL 0.1-1.0 Serum or plasma alkaline phosphatase [place] surement (enzymatic activity/volume) 58 U/L 40-136 Serum or plasma aspartate aminotransfera se measurement (enzymatic activity/volume) 29 U/L 5-34 Serum or plasma alanine aminotransferase measurement (enzymatic activity/volume) 21 U/L 0-55 Serum or plasma protein measurement (mass/volume) 6.2 g/dL 6.4-8.2 Serum or plasma albumin measurement (mass/volume) 3.8 g/dL 3.2-4.5 CALCIUM CORRECTED 9.4 mg/dL 8.5-10.1 Serum or plasma phosphate measurement (m ass/volume) - 06/27/19 14:00 Serum or plasma phosphate measurement (mass/volume) 3.9 mg/dL 2.3-4.7 Magnesium - 06/27/19 14:00 Magnesium 2.1 mg/dL 1.6-2.4 Complete blood count (CBC) with automate d white blood cell (WBC) differential - 07/02/19 10:30 Blood leukocytes automated count (number/volume) 4.9 10*3/uL 4.3-11.0 Blood erythrocytes automated count (number/volume) 2.85 10*6/uL 4.35-5.85 Venous blood hemoglobin measurement (mass/volume) 8.6 g/dL 11.5-16.0 Blood hematocrit (volume fraction) 28 % 35-52 Automated erythrocyte mean corpuscular volume 99 [ foz_us] 80-99 Automated erythrocyte mean corpuscular h emoglobin (mass per erythrocyte) 30 pg 25-34 Automated erythrocyte mean corpuscular h emoglobin concentration measurement (mass/volume) 31 g/dL 32-36 Automated erythrocyte distribution width ratio 15. 9 % 10.0- 14.5 Automated blood platelet count (count/volume) 197 10*3/uL 130-400 Automated blood platelet mean volume measurement 12.5 [foz_us] 7.4-10.4 Automated blood neutrophils/100 leukocytes 49 % 42-75 Automated blood lymphocytes/100 leukocytes 37 % 12-44 Blood monocytes/100 leukocytes 11 % 0-12 Automated blood eosinophils/100 leukocytes 4 % 0-10 Automated blood basophils/100 leukocytes 0 % 0-10 Blood neutrophils automated count (number/volume) 2.4 10*3 1.8-7.8 Blood lymphocytes automated count (number/volume) 1.8 10*3 1.0-4.0 Blood monocytes automated count (number/volume) 0. 5 10*3 0.0-1.0 Automated eosinophil count 0.2 10*3/uL 0 .0-0.3 Automated blood basophil count (count/volume) 0.0 10*3/uL 0.0-0.1 Comprehensive metabolic panel - 07/02/19 10:30 Serum or plasma sodium measurement (moles/volume) 142 mmol/L 135-145 Serum or plasma potassium measurement (moles/volume) 4.7 mmol/L 3.6-5.0 Serum or plasma chloride measurement (moles/volume) 105 mmol/L 98-107 Carbon dioxide 27 mmol/L 21-32 Serum or plasma anion gap determination (moles/volume) 10 mmol/L 5-14 Serum or plasma urea nitrogen measurement (mass/volume ) 22 mg/dL 7-18 Serum or plasma creatinine measurement (mass/volume) 0.41 mg/dL 0.60-1.30 Serum or plasma urea nitrogen/creatinine mass ratio 54 NRG Serum or plasma creatinine measurement w ith calculation of estimated glomerular filtration rate > NRG Serum or plasma glucose measurement (mass/volume) 103 mg/dL 70-105 Serum or plasma calcium measurement (mass/volume) 9.1 mg/dL 8.5-10.1 Serum or plasma total bilirubin measurement (mass/volu me) 0.2 mg/dL 0.1-1.0 Serum or plasma alkaline phosphatase [place] surement (enzymatic activity/volume) 53 U/L 40-136 Serum or plasma aspartate aminotransfera se measurement (enzymatic activity/volume) 17 U/L 5-34 Serum or plasma alanine aminotransferase measurement (enzymatic activity/volume) 18 U/L 0-55 Serum or plasma protein measurement (mass/volume) 5.8 g/dL 6.4-8.2 Serum or plasma albumin measurement (mass/volume) 3.4 g/dL 3.2-4.5 CALCIUM CORRECTED 9.6 mg/dL 8.5-10.1 Serum or plasma phosphate measurement (m ass/volume) - 07/02/19 10:30 Serum or plasma phosphate measurement (mass/volume) 5.4 mg/dL 2.3-4.7 Magnesium - 07/02/19 10:30 Magnesium 1.7 mg/dL 1.6-2.4 Complete blood count (CBC) with automate d white blood cell (WBC) differential - 07/09/19 11:15 Blood leukocytes automated count (number/volume) 5.5 10*3/uL 4.3-11.0 Blood erythrocytes automated count (number/volume) 3.23 10*6/uL 4.35-5.85 Venous blood hemoglobin measurement (mass/volume) 9.9 g/dL 11.5-16.0 Blood hematocrit (volume fraction) 31 % 35-52 Automated erythrocyte mean corpuscular volume 96 [ foz_us] 80-99 Automated erythrocyte mean corpuscular h emoglobin (mass per erythrocyte) 31 pg 25-34 Automated erythrocyte mean corpuscular h emoglobin concentration measurement (mass/volume) 32 g/dL 32-36 Automated erythrocyte distribution width ratio 14. 9 % 10.0- 14.5 Automated blood platelet count (count/volume) 237 10*3/uL 130-400 Automated blood platelet mean volume measurement 12.5 [foz_us] 7.4-10.4 Automated blood neutrophils/100 leukocytes 59 % 42-75 Automated blood lymphocytes/100 leukocytes 29 % 12-44 Blood monocytes/100 leukocytes 10 % 0-12 Automated blood eosinophils/100 leukocytes 1 % 0-10 Automated blood basophils/100 leukocytes 0 % 0-10 Blood neutrophils automated count (number/volume) 3.3 10*3 1.8-7.8 Blood lymphocytes automated count (number/volume) 1.6 10*3 1.0-4.0 Blood monocytes automated count (number/volume) 0. 6 10*3 0.0-1.0 Automated eosinophil count 0.1 10*3/uL 0 .0-0.3 Automated blood basophil count (count/volume) 0.0 10*3/uL 0.0-0.1 Comprehensive metabolic panel - 07/09/19 11:15 Serum or plasma sodium measurement (moles/volume) 141 mmol/L 135-145 Serum or plasma potassium measurement (moles/volume) 3.9 mmol/L 3.6-5.0 Serum or plasma chloride measurement (moles/volume) 104 mmol/L 98-107 Carbon dioxide 27 mmol/L 21-32 Serum or plasma anion gap determination (moles/volume) 10 mmol/L 5-14 Serum or plasma urea nitrogen measurement (mass/volume ) 15 mg/dL 7-18 Serum or plasma creatinine measurement (mass/volume) 0.36 mg/dL 0.60-1.30 Serum or plasma urea nitrogen/creatinine mass ratio 42 NRG Serum or plasma creatinine measurement w ith calculation of estimated glomerular filtration rate > NRG Serum or plasma glucose measurement (mass/volume) 88 mg/dL 70-105 Serum or plasma calcium measurement (mass/volume) 9.2 mg/dL 8.5-10.1 Serum or plasma total bilirubin measurement (mass/volu me) 0.5 mg/dL 0.1-1.0 Serum or plasma alkaline phosphatase [place] surement (enzymatic activity/volume) 55 U/L 40-136 Serum or plasma aspartate aminotransfera se measurement (enzymatic activity/volume) 11 U/L 5-34 Serum or plasma alanine aminotransferase measurement (enzymatic activity/volume) 17 U/L 0-55 Serum or plasma protein measurement (mass/volume) 6.3 g/dL 6.4-8.2 Serum or plasma albumin measurement (mass/volume) 3.7 g/dL 3.2-4.5 CALCIUM CORRECTED 9.4 mg/dL 8.5-10.1 Serum or plasma phosphate measurement (m ass/volume) - 07/09/19 11:15 Serum or plasma phosphate measurement (mass/volume) 3.8 mg/dL 2.3-4.7 Magnesium - 07/09/19 11:15 Magnesium 1.8 mg/dL 1.6-2.4 Complete blood count (CBC) with automate d white blood cell (WBC) differential - 07/16/19 14:00 Blood leukocytes automated count (number/volume) 7.6 10*3/uL 4.3-11.0 Blood erythrocytes automated count (number/volume) 3.53 10*6/uL 4.35-5.85 Venous blood hemoglobin measurement (mass/volume) 10.9 g/dL 11.5-16.0 Blood hematocrit (volume fraction) 35 % 35-52 Automated erythrocyte mean corpuscular volume 99 [ foz_us] 80-99 Automated erythrocyte mean corpuscular h emoglobin (mass per erythrocyte) 31 pg 25-34 Automated erythrocyte mean corpuscular h emoglobin concentration measurement (mass/volume) 31 g/dL 32-36 Automated erythrocyte distribution width ratio 14. 1 % 10.0- 14.5 Automated blood platelet count (count/volume) 182 10*3/uL 130-400 Automated blood platelet mean volume measurement 13.6 [foz_us] 7.4-10.4 Automated blood neutrophils/100 leukocytes 65 % 42-75 Automated blood lymphocytes/100 leukocytes 26 % 12-44 Blood monocytes/100 leukocytes 6 % 0-12 Automated blood eosinophils/100 leukocytes 2 % 0-10 Automated blood basophils/100 leukocytes 0 % 0-10 Blood neutrophils automated count (number/volume) 4.9 10*3 1.8-7.8 Blood lymphocytes automated count (number/volume) 2.0 10*3 1.0-4.0 Blood monocytes automated count (number/volume) 0. 5 10*3 0.0-1.0 Automated eosinophil count 0.2 10*3/uL 0 .0-0.3 Automated blood basophil count (count/volume) 0.0 10*3/uL 0.0-0.1 Comprehensive metabolic panel - 07/16/19 14:00 Serum or plasma sodium measurement (moles/volume) 137 mmol/L 135-145 Serum or plasma potassium measurement (moles/volume) 5.1 mmol/L 3.6-5.0 Serum or plasma chloride measurement (moles/volume) 101 mmol/L 98-107 Carbon dioxide 23 mmol/L 21-32 Serum or plasma anion gap determination (moles/volume) 13 mmol/L 5-14 Serum or plasma urea nitrogen measurement (mass/volume ) 22 mg/dL 7-18 Serum or plasma creatinine measurement (mass/volume) 0.44 mg/dL 0.60-1.30 Serum or plasma urea nitrogen/creatinine mass ratio 50 NRG Serum or plasma creatinine measurement w ith calculation of estimated glomerular filtration rate > NRG Serum or plasma glucose measurement (mass/volume) 168 mg/dL 70-105 Serum or plasma calcium measurement (mass/volume) 9.1 mg/dL 8.5-10.1 Serum or plasma total bilirubin measurement (mass/volu me) 0.5 mg/dL 0.1-1.0 Serum or plasma alkaline phosphatase [place] surement (enzymatic activity/volume) 61 U/L 40-136 Serum or plasma aspartate aminotransfera se measurement (enzymatic activity/volume) 19 U/L 5-34 Serum or plasma alanine aminotransferase measurement (enzymatic activity/volume) 21 U/L 0-55 Serum or plasma protein measurement (mass/volume) 6.5 g/dL 6.4-8.2 Serum or plasma albumin measurement (mass/volume) 3.7 g/dL 3.2-4.5 CALCIUM CORRECTED 9.3 mg/dL 8.5-10.1 Serum or plasma phosphate measurement (m ass/volume) - 07/16/19 14:00 Serum or plasma phosphate measurement (mass/volume) 5.0 mg/dL 2.3-4.7 Magnesium - 07/16/19 14:00 Magnesium 1.8 mg/dL 1.6-2.4 Complete blood count (CBC) with automate d white blood cell (WBC) differential - 07/23/19 14:15 Blood leukocytes automated count (number/volume) 7.6 10*3/uL 4.3-11.0 Blood erythrocytes automated count (number/volume) 3.52 10*6/uL 4.35-5.85 Venous blood hemoglobin measurement (mass/volume) 10.7 g/dL 11.5-16.0 Blood hematocrit (volume fraction) 34 % 35-52 Automated erythrocyte mean corpuscular volume 98 [ foz_us] 80-99 Automated erythrocyte mean corpuscular h emoglobin (mass per erythrocyte) 30 pg 25-34 Automated erythrocyte mean corpuscular h emoglobin concentration measurement (mass/volume) 31 g/dL 32-36 Automated erythrocyte distribution width ratio 13. 7 % 10.0- 14.5 Automated blood platelet count (count/volume) 167 10*3/uL 130-400 Automated blood platelet mean volume measurement 13.9 [foz_us] 7.4-10.4 Automated blood neutrophils/100 leukocytes 70 % 42-75 Automated blood lymphocytes/100 leukocytes 24 % 12-44 Blood monocytes/100 leukocytes 4 % 0-12 Automated blood eosinophils/100 leukocytes 2 % 0-10 Automated blood basophils/100 leukocytes 0 % 0-10 Blood neutrophils automated count (number/volume) 5.3 10*3 1.8-7.8 Blood lymphocytes automated count (number/volume) 1.8 10*3 1.0-4.0 Blood monocytes automated count (number/volume) 0. 3 10*3 0.0-1.0 Automated eosinophil count 0.1 10*3/uL 0 .0-0.3 Automated blood basophil count (count/volume) 0.0 10*3/uL 0.0-0.1 Comprehensive metabolic panel - 07/23/19 14:15 Serum or plasma sodium measurement (moles/volume) 135 mmol/L 135-145 Serum or plasma potassium measurement (moles/volume) 5.1 mmol/L 3.6-5.0 Serum or plasma chloride measurement (moles/volume) 98 mmol/L 98-107 Carbon dioxide 25 mmol/L 21-32 Serum or plasma anion gap determination (moles/volume) 12 mmol/L 5-14 Serum or plasma urea nitrogen measurement (mass/volume ) 19 mg/dL 7-18 Serum or plasma creatinine measurement (mass/volume) 0.43 mg/dL 0.60-1.30 Serum or plasma urea nitrogen/creatinine mass ratio 44 NRG Serum or plasma creatinine measurement w ith calculation of estimated glomerular filtration rate > NRG Serum or plasma glucose measurement (mass/volume) 291 mg/dL 70-105 Serum or plasma calcium measurement (mass/volume) 9.1 mg/dL 8.5-10.1 Serum or plasma total bilirubin measurement (mass/volu me) 0.5 mg/dL 0.1-1.0 Serum or plasma alkaline phosphatase [place] surement (enzymatic activity/volume) 60 U/L 40-136 Serum or plasma aspartate aminotransfera se measurement (enzymatic activity/volume) 19 U/L 5-34 Serum or plasma alanine aminotransferase measurement (enzymatic activity/volume) 19 U/L 0-55 Serum or plasma protein measurement (mass/volume) 6.7 g/dL 6.4-8.2 Serum or plasma albumin measurement (mass/volume) 3.7 g/dL 3.2-4.5 CALCIUM CORRECTED 9.3 mg/dL 8.5-10.1 Serum or plasma phosphate measurement (m ass/volume) - 07/23/19 14:15 Serum or plasma phosphate measurement (mass/volume) 4.3 mg/dL 2.3-4.7 Magnesium - 07/23/19 14:15 Magnesium 1.7 mg/dL 1.6-2.4 Complete blood count (CBC) with automate d white blood cell (WBC) differential - 07/30/19 12:30 Blood leukocytes automated count (number/volume) 10.0 10*3/uL 4.3-11.0 Blood erythrocytes automated count (number/volume) 3.40 10*6/uL 4.35-5.85 Venous blood hemoglobin measurement (mass/volume) 10.6 g/dL 11.5-16.0 Blood hematocrit (volume fraction) 33 % 35-52 Automated erythrocyte mean corpuscular volume 98 [ foz_us] 80-99 Automated erythrocyte mean corpuscular h emoglobin (mass per erythrocyte) 31 pg 25-34 Automated erythrocyte mean corpuscular h emoglobin concentration measurement (mass/volume) 32 g/dL 32-36 Automated erythrocyte distribution width ratio 13. 4 % 10.0- 14.5 Automated blood platelet count (count/volume) 170 10*3/uL 130-400 Automated blood platelet mean volume measurement 13.9 [foz_us] 7.4-10.4 Automated blood neutrophils/100 leukocytes 72 % 42-75 Automated blood lymphocytes/100 leukocytes 19 % 12-44 Blood monocytes/100 leukocytes 6 % 0-12 Automated blood eosinophils/100 leukocytes 3 % 0-10 Automated blood basophils/100 leukocytes 0 % 0-10 Blood neutrophils automated count (number/volume) 7.2 10*3 1.8-7.8 Blood lymphocytes automated count (number/volume) 1.9 10*3 1.0-4.0 Blood monocytes automated count (number/volume) 0. 6 10*3 0.0-1.0 Automated eosinophil count 0.3 10*3/uL 0 .0-0.3 Automated blood basophil count (count/volume) 0.0 10*3/uL 0.0-0.1 Comprehensive metabolic panel - 07/30/19 12:30 Serum or plasma sodium measurement (moles/volume) 136 mmol/L 135-145 Serum or plasma potassium measurement (moles/volume) 4.6 mmol/L 3.6-5.0 Serum or plasma chloride measurement (moles/volume) 99 mmol/L 98-107 Carbon dioxide 26 mmol/L 21-32 Serum or plasma anion gap determination (moles/volume) 11 mmol/L 5-14 Serum or plasma urea nitrogen measurement (mass/volume ) 18 mg/dL 7-18 Serum or plasma creatinine measurement (mass/volume) 0.40 mg/dL 0.60-1.30 Serum or plasma urea nitrogen/creatinine mass ratio 45 NRG Serum or plasma creatinine measurement w ith calculation of estimated glomerular filtration rate > NRG Serum or plasma glucose measurement (mass/volume) 243 mg/dL 70-105 Serum or plasma calcium measurement (mass/volume) 9.6 mg/dL 8.5-10.1 Serum or plasma total bilirubin measurement (mass/volu me) 0.4 mg/dL 0.1-1.0 Serum or plasma alkaline phosphatase [place] surement (enzymatic activity/volume) 55 U/L 40-136 Serum or plasma aspartate aminotransfera se measurement (enzymatic activity/volume) 18 U/L 5-34 Serum or plasma alanine aminotransferase measurement (enzymatic activity/volume) 20 U/L 0-55 Serum or plasma protein measurement (mass/volume) 6.5 g/dL 6.4-8.2 Serum or plasma albumin measurement (mass/volume) 3.7 g/dL 3.2-4.5 CALCIUM CORRECTED 9.8 mg/dL 8.5-10.1 Serum or plasma phosphate measurement (m ass/volume) - 07/30/19 12:30 Serum or plasma phosphate measurement (mass/volume) 4.0 mg/dL 2.3-4.7 Magnesium - 07/30/19 12:30 Magnesium 1.8 mg/dL 1.6-2.4 Complete blood count (CBC) with automate d white blood cell (WBC) differential - 08/06/19 13:30 Blood leukocytes automated count (number/volume) 6.8 10*3/uL 4.3-11.0 Blood erythrocytes automated count (number/volume) 3.50 10*6/uL 4.35-5.85 Venous blood hemoglobin measurement (mass/volume) 10.7 g/dL 11.5-16.0 Blood hematocrit (volume fraction) 34 % 35-52 Automated erythrocyte mean corpuscular volume 98 [ foz_us] 80-99 Automated erythrocyte mean corpuscular h emoglobin (mass per erythrocyte) 31 pg 25-34 Automated erythrocyte mean corpuscular h emoglobin concentration measurement (mass/volume) 32 g/dL 32-36 Automated erythrocyte distribution width ratio 13. 4 % 10.0- 14.5 Automated blood platelet count (count/volume) 198 10*3/uL 130-400 Automated blood platelet mean volume measurement 13.7 [foz_us] 7.4-10.4 Automated blood neutrophils/100 leukocytes 62 % 42-75 Automated blood lymphocytes/100 leukocytes 29 % 12-44 Blood monocytes/100 leukocytes 6 % 0-12 Automated blood eosinophils/100 leukocytes 3 % 0-10 Automated blood basophils/100 leukocytes 0 % 0-10 Blood neutrophils automated count (number/volume) 4.2 10*3 1.8-7.8 Blood lymphocytes automated count (number/volume) 2.0 10*3 1.0-4.0 Blood monocytes automated count (number/volume) 0. 4 10*3 0.0-1.0 Automated eosinophil count 0.2 10*3/uL 0 .0-0.3 Automated blood basophil count (count/volume) 0.0 10*3/uL 0.0-0.1 Comprehensive metabolic panel - 08/06/19 13:30 Serum or plasma sodium measurement (moles/volume) 136 mmol/L 135-145 Serum or plasma potassium measurement (moles/volume) 4.4 mmol/L 3.6-5.0 Serum or plasma chloride measurement (moles/volume) 99 mmol/L 98-107 Carbon dioxide 25 mmol/L 21-32 Serum or plasma anion gap determination (moles/volume) 12 mmol/L 5-14 Serum or plasma urea nitrogen measurement (mass/volume ) 20 mg/dL 7-18 Serum or plasma creatinine measurement (mass/volume) 0.37 mg/dL 0.60-1.30 Serum or plasma urea nitrogen/creatinine mass ratio 54 NRG Serum or plasma creatinine measurement w ith calculation of estimated glomerular filtration rate > NRG Serum or plasma glucose measurement (mass/volume) 195 mg/dL 70-105 Serum or plasma calcium measurement (mass/volume) 9.4 mg/dL 8.5-10.1 Serum or plasma total bilirubin measurement (mass/volu me) 0.5 mg/dL 0.1-1.0 Serum or plasma alkaline phosphatase [place] surement (enzymatic activity/volume) 55 U/L 40-136 Serum or plasma aspartate aminotransfera se measurement (enzymatic activity/volume) 19 U/L 5-34 Serum or plasma alanine aminotransferase measurement (enzymatic activity/volume) 15 U/L 0-55 Serum or plasma protein measurement (mass/volume) 6.3 g/dL 6.4-8.2 Serum or plasma albumin measurement (mass/volume) 3.7 g/dL 3.2-4.5 CALCIUM CORRECTED 9.6 mg/dL 8.5-10.1 Serum or plasma phosphate measurement (m ass/volume) - 08/06/19 13:30 Serum or plasma phosphate measurement (mass/volume) 4.1 mg/dL 2.3-4.7 Magnesium - 08/06/19 13:30 Magnesium 1.7 mg/dL 1.6-2.4 Complete blood count (CBC) with automate d white blood cell (WBC) differential - 08/13/19 13:15 Blood leukocytes automated count (number/volume) 6.6 10*3/uL 4.3-11.0 Blood erythrocytes automated count (number/volume) 3.21 10*6/uL 4.35-5.85 Venous blood hemoglobin measurement (mass/volume) 9.9 g/dL 11.5-16.0 Blood hematocrit (volume fraction) 32 % 35-52 Automated erythrocyte mean corpuscular volume 99 [ foz_us] 80-99 Automated erythrocyte mean corpuscular h emoglobin (mass per erythrocyte) 31 pg 25-34 Automated erythrocyte mean corpuscular h emoglobin concentration measurement (mass/volume) 31 g/dL 32-36 Automated erythrocyte distribution width ratio 13. 3 % 10.0- 14.5 Automated blood platelet count (count/volume) 151 10*3/uL 130-400 Automated blood platelet mean volume measurement 13.8 [foz_us] 7.4-10.4 Automated blood neutrophils/100 leukocytes 56 % 42-75 Automated blood lymphocytes/100 leukocytes 33 % 12-44 Blood monocytes/100 leukocytes 8 % 0-12 Automated blood eosinophils/100 leukocytes 3 % 0-10 Automated blood basophils/100 leukocytes 0 % 0-10 Blood neutrophils automated count (number/volume) 3.7 10*3 1.8-7.8 Blood lymphocytes automated count (number/volume) 2.2 10*3 1.0-4.0 Blood monocytes automated count (number/volume) 0. 5 10*3 0.0-1.0 Automated eosinophil count 0.2 10*3/uL 0 .0-0.3 Automated blood basophil count (count/volume) 0.0 10*3/uL 0.0-0.1 Comprehensive metabolic panel - 08/13/19 13:15 Serum or plasma sodium measurement (moles/volume) 137 mmol/L 135-145 Serum or plasma potassium measurement (moles/volume) 5.3 mmol/L 3.6-5.0 Serum or plasma chloride measurement (moles/volume) 102 mmol/L 98-107 Carbon dioxide 24 mmol/L 21-32 Serum or plasma anion gap determination (moles/volume) 11 mmol/L 5-14 Serum or plasma urea nitrogen measurement (mass/volume ) 19 mg/dL 7-18 Serum or plasma creatinine measurement (mass/volume) 0.46 mg/dL 0.60-1.30 Serum or plasma urea nitrogen/creatinine mass ratio 41 NRG Serum or plasma creatinine measurement w ith calculation of estimated glomerular filtration rate > NRG Serum or plasma glucose measurement (mass/volume) 268 mg/dL 70-105 Serum or plasma calcium measurement (mass/volume) 9.0 mg/dL 8.5-10.1 Serum or plasma total bilirubin measurement (mass/volu me) 0.3 mg/dL 0.1-1.0 Serum or plasma alkaline phosphatase [place] surement (enzymatic activity/volume) 56 U/L 40-136 Serum or plasma aspartate aminotransfera se measurement (enzymatic activity/volume) 27 U/L 5-34 Serum or plasma alanine aminotransferase measurement (enzymatic activity/volume) 26 U/L 0-55 Serum or plasma protein measurement (mass/volume) 5.8 g/dL 6.4-8.2 Serum or plasma albumin measurement (mass/volume) 3.6 g/dL 3.2-4.5 CALCIUM CORRECTED 9.3 mg/dL 8.5-10.1 Serum or plasma phosphate measurement (m ass/volume) - 08/13/19 13:15 Serum or plasma phosphate measurement (mass/volume) 5.3 mg/dL 2.3-4.7 Magnesium - 08/13/19 13:15 Magnesium 1.7 mg/dL 1.6-2.4 Complete blood count (CBC) with automate d white blood cell (WBC) differential - 08/20/19 12:15 Blood leukocytes automated count (number/volume) 6.7 10*3/uL 4.3-11.0 Blood erythrocytes automated count (number/volume) 3.50 10*6/uL 4.35-5.85 Venous blood hemoglobin measurement (mass/volume) 10.7 g/dL 11.5-16.0 Blood hematocrit (volume fraction) 34 % 35-52 Automated erythrocyte mean corpuscular volume 97 [ foz_us] 80-99 Automated erythrocyte mean corpuscular h emoglobin (mass per erythrocyte) 31 pg 25-34 Automated erythrocyte mean corpuscular h emoglobin concentration measurement (mass/volume) 32 g/dL 32-36 Automated erythrocyte distribution width ratio 13. 2 % 10.0- 14.5 Automated blood platelet count (count/volume) 179 10*3/uL 130-400 Automated blood platelet mean volume measurement 13.7 [foz_us] 7.4-10.4 Automated blood neutrophils/100 leukocytes 61 % 42-75 Automated blood lymphocytes/100 leukocytes 29 % 12-44 Blood monocytes/100 leukocytes 8 % 0-12 Automated blood eosinophils/100 leukocytes 2 % 0-10 Automated blood basophils/100 leukocytes 0 % 0-10 Blood neutrophils automated count (number/volume) 4.1 10*3 1.8-7.8 Blood lymphocytes automated count (number/volume) 1.9 10*3 1.0-4.0 Blood monocytes automated count (number/volume) 0. 6 10*3 0.0-1.0 Automated eosinophil count 0.1 10*3/uL 0 .0-0.3 Automated blood basophil count (count/volume) 0.0 10*3/uL 0.0-0.1 Comprehensive metabolic panel - 08/20/19 12:15 Serum or plasma sodium measurement (moles/volume) 138 mmol/L 135-145 Serum or plasma potassium measurement (moles/volume) 4.1 mmol/L 3.6-5.0 Serum or plasma chloride measurement (moles/volume) 99 mmol/L 98-107 Carbon dioxide 26 mmol/L 21-32 Serum or plasma anion gap determination (moles/volume) 13 mmol/L 5-14 Serum or plasma urea nitrogen measurement (mass/volume ) 17 mg/dL 7-18 Serum or plasma creatinine measurement (mass/volume) 0.39 mg/dL 0.60-1.30 Serum or plasma urea nitrogen/creatinine mass ratio 44 NRG Serum or plasma creatinine measurement w ith calculation of estimated glomerular filtration rate > NRG Serum or plasma glucose measurement (mass/volume) 202 mg/dL 70-105 Serum or plasma calcium measurement (mass/volume) 9.4 mg/dL 8.5-10.1 Serum or plasma total bilirubin measurement (mass/volu me) 0.5 mg/dL 0.1-1.0 Serum or plasma alkaline phosphatase [place] surement (enzymatic activity/volume) 55 U/L 40-136 Serum or plasma aspartate aminotransfera se measurement (enzymatic activity/volume) 14 U/L 5-34 Serum or plasma alanine aminotransferase measurement (enzymatic activity/volume) 19 U/L 0-55 Serum or plasma protein measurement (mass/volume) 6.4 g/dL 6.4-8.2 Serum or plasma albumin measurement (mass/volume) 3.8 g/dL 3.2-4.5 CALCIUM CORRECTED 9.6 mg/dL 8.5-10.1 Serum or plasma phosphate measurement (m ass/volume) - 08/20/19 12:15 Serum or plasma phosphate measurement (mass/volume) 3.8 mg/dL 2.3-4.7 Magnesium - 08/20/19 12:15 Magnesium 1.6 mg/dL 1.6-2.4 CMP - 09/04/19 17:27 GLUCOSE 119 mg/dL 65-99 UREA NITROGEN (BUN) 23 mg/dL 7-25 CREATININE 0.52 mg/dL 0.50-1.10 eGFR NON-AFR. HONG KONGER 124 mL/min/1.73m2 > OR = 60 eGFR 143 mL/min/1.73m2 > OR = 60 BUN/CREATININE RATIO NOT APPLICABLE (calc) 6-22 SODIUM 137 mmol/L 135-146 POTASSIUM 5.0 mmol/L 3.5-5.3 CHLORIDE 106 mmol/L 98-110 CARBON DIOXIDE 22 mmol/L 20-32 CALCIUM 9.0 mg/dL 8.6-10.2 PROTEIN, TOTAL 6.1 g/dL 6.1-8.1 ALBUMIN 3.6 g/dL 3.6-5.1 GLOBULIN 2.5 g/dL (calc) 1.9-3.7 ALBUMIN/GLOBULIN RATIO 1.4 (calc) 1.0-2. 5 BILIRUBIN, TOTAL 0.4 mg/dL 0.2-1.2 ALKALINE PHOSPHATASE 56 U/L 31-125 AST 22 U/L 10-30 ALT 16 U/L 6-29 MAGNESIUM SERUM - 09/04/19 17:27 MAGNESIUM 1.8 mg/dL 1.5-2.5 PHOSPHORUS - 09/04/19 17:27 PHOSPHATE ( PHOSPHORUS) 4.2 mg/dL 2.5- 4.5 CBC - 09/04/19 17:27 WHITE BLOOD CELL COUNT 6.0 Thousand/uL 3 .8-10.8 RED BLOOD CELL COUNT 3.57 Million/uL 3.8 0-5.10 HEMOGLOBIN 10.9 g/dL 11.7-15.5 HEMATOCRIT 34.1 % 35.0-45.0 MCV 95.5 fL 80.0-100.0 MCH 30.5 pg 27.0-33.0 MCHC 32.0 g/dL 32.0-36.0 RDW 12.0 % 11.0-15.0 PLATELET COUNT 189 Thousand/uL 140-400 MPV 13.4 fL 7.5-12.5 ABSOLUTE NEUTROPHILS 3258 cells/uL 1500- 7800 ABSOLUTE LYMPHOCYTES 2088 cells/uL 850-3 900 ABSOLUTE MONOCYTES 522 cells/uL 200-950 ABSOLUTE EOSINOPHILS 132 cells/uL 15-500 ABSOLUTE BASOPHILS 0 cells/uL 0-200 NEUTROPHILS 54.3 % NRG LYMPHOCYTES 34.8 % NRG MONOCYTES 8.7 % NRG EOSINOPHILS 2.2 % NRG BASOPHILS 0.0 % NRG MAGNESIUM SERUM - 09/10/19 15:11 MAGNESIUM 1.7 mg/dL 1.5-2.5 PHOSPHORUS - 09/10/19 15:11 PHOSPHATE ( PHOSPHORUS) 4.9 mg/dL 2.5- 4.5 CBC - 09/10/19 15:11 WHITE BLOOD CELL COUNT 8.8 Thousand/uL 3 .8-10.8 RED BLOOD CELL COUNT 3.62 Million/uL 3.8 0-5.10 HEMOGLOBIN 11.0 g/dL 11.7-15.5 HEMATOCRIT 34.1 % 35.0-45.0 MCV 94.2 fL 80.0-100.0 MCH 30.4 pg 27.0-33.0 MCHC 32.3 g/dL 32.0-36.0 RDW 11.9 % 11.0-15.0 PLATELET COUNT 191 Thousand/uL 140-400 MPV 13.8 fL 7.5-12.5 ABSOLUTE NEUTROPHILS 5949 cells/uL 1500- 7800 ABSOLUTE LYMPHOCYTES 2130 cells/uL 850-3 900 ABSOLUTE MONOCYTES 590 cells/uL 200-950 ABSOLUTE EOSINOPHILS 123 cells/uL 15-500 ABSOLUTE BASOPHILS 9 cells/uL 0-200 NEUTROPHILS 67.6 % NRG LYMPHOCYTES 24.2 % NRG MONOCYTES 6.7 % NRG EOSINOPHILS 1.4 % NRG BASOPHILS 0.1 % NRG CMP - 09/17/19 16:22 GLUCOSE 175 mg/dL 65-99 UREA NITROGEN (BUN) 20 mg/dL 7-25 CREATININE 0.49 mg/dL 0.50-1.10 eGFR NON-AFR. [place]ER 126 mL/min/1.73m2 > OR = 60 eGFR 146 mL/min/1.73m2 > OR = 60 BUN/CREATININE RATIO 41 (calc) 6-22 SODIUM 137 mmol/L 135-146 POTASSIUM 4.3 mmol/L 3.5-5.3 CHLORIDE 101 mmol/L 98-110 CARBON DIOXIDE 24 mmol/L 20-32 CALCIUM 9.8 mg/dL 8.6-10.2 PROTEIN, TOTAL 6.5 g/dL 6.1-8.1 ALBUMIN 3.9 g/dL 3.6-5.1 GLOBULIN 2.6 g/dL (calc) 1.9-3.7 ALBUMIN/GLOBULIN RATIO 1.5 (calc) 1.0-2. 5 BILIRUBIN, TOTAL 0.6 mg/dL 0.2-1.2 ALKALINE PHOSPHATASE 63 U/L 31-125 AST 14 U/L 10-30 ALT 17 U/L 6-29 MAGNESIUM SERUM - 09/17/19 16:22 MAGNESIUM 1.8 mg/dL 1.5-2.5 PHOSPHORUS - 09/17/19 16:22 PHOSPHATE ( PHOSPHORUS) 3.7 mg/dL 2.5- 4.5 CBC - 09/17/19 16:22 WHITE BLOOD CELL COUNT 6.9 Thousand/uL 3 .8-10.8 RED BLOOD CELL COUNT 3.69 Million/uL 3.8 0-5.10 HEMOGLOBIN 11.4 g/dL 11.7-15.5 HEMATOCRIT 35.5 % 35.0-45.0 MCV 96.2 fL 80.0-100.0 MCH 30.9 pg 27.0-33.0 MCHC 32.1 g/dL 32.0-36.0 RDW 11.8 % 11.0-15.0 PLATELET COUNT 178 Thousand/uL 140-400 MPV 13.4 fL 7.5-12.5 ABSOLUTE NEUTROPHILS 4223 cells/uL 1500- 7800 ABSOLUTE LYMPHOCYTES 1973 cells/uL 850-3 900 ABSOLUTE MONOCYTES 642 cells/uL 200-950 ABSOLUTE EOSINOPHILS 62 cells/uL 15-500 ABSOLUTE BASOPHILS 0 cells/uL 0-200 NEUTROPHILS 61.2 % NRG LYMPHOCYTES 28.6 % NRG MONOCYTES 9.3 % NRG EOSINOPHILS 0.9 % NRG BASOPHILS 0.0 % NRG A1C - 09/17/19 16:22 HEMOGLOBIN A1c 6.3 % of total Hgb <5.7 INSULIN LEVEL - 09/17/19 16:22 INSULIN 25.8 uIU/mL NRG CMP - 09/25/19 16:28 GLUCOSE 147 mg/dL 65-99 UREA NITROGEN (BUN) 17 mg/dL 7-25 CREATININE 0.46 mg/dL 0.50-1.10 eGFR NON-AFR. [place]ER 129 mL/min/1.73m2 > OR = 60 eGFR 149 mL/min/1.73m2 > OR = 60 BUN/CREATININE RATIO 37 (calc) 6-22 SODIUM 139 mmol/L 135-146 POTASSIUM 4.5 mmol/L 3.5-5.3 CHLORIDE 104 mmol/L 98-110 CARBON DIOXIDE 22 mmol/L 20-32 CALCIUM 8.8 mg/dL 8.6-10.2 PROTEIN, TOTAL 6.2 g/dL 6.1-8.1 ALBUMIN 3.6 g/dL 3.6-5.1 GLOBULIN 2.6 g/dL (calc) 1.9-3.7 ALBUMIN/GLOBULIN RATIO 1.4 (calc) 1.0-2. 5 BILIRUBIN, TOTAL 0.4 mg/dL 0.2-1.2 ALKALINE PHOSPHATASE 51 U/L 31-125 AST 17 U/L 10-30 ALT 12 U/L 6-29 MAGNESIUM SERUM - 09/25/19 16:28 MAGNESIUM 1.7 mg/dL 1.5-2.5 PHOSPHORUS - 09/25/19 16:28 PHOSPHATE ( PHOSPHORUS) 4.6 mg/dL 2.5- 4.5 CBC - 09/25/19 16:28 WHITE BLOOD CELL COUNT 5.2 Thousand/uL 3 .8-10.8 RED BLOOD CELL COUNT 3.60 Million/uL 3.8 0-5.10 HEMOGLOBIN 11.0 g/dL 11.7-15.5 HEMATOCRIT 34.3 % 35.0-45.0 MCV 95.3 fL 80.0-100.0 MCH 30.6 pg 27.0-33.0 MCHC 32.1 g/dL 32.0-36.0 RDW 11.9 % 11.0-15.0 PLATELET COUNT 167 Thousand/uL 140-400 MPV 13.5 fL 7.5-12.5 ABSOLUTE NEUTROPHILS 2402 cells/uL 1500- 7800 ABSOLUTE LYMPHOCYTES 2184 cells/uL 850-3 900 ABSOLUTE MONOCYTES 442 cells/uL 200-950 ABSOLUTE EOSINOPHILS 172 cells/uL 15-500 ABSOLUTE BASOPHILS 0 cells/uL 0-200 NEUTROPHILS 46.2 % NRG LYMPHOCYTES 42.0 % NRG MONOCYTES 8.5 % NRG EOSINOPHILS 3.3 % NRG BASOPHILS 0.0 % NRG MAGNESIUM SERUM - 10/01/19 14:36 MAGNESIUM 1.5 mg/dL 1.5-2.5 PHOSPHORUS - 10/01/19 14:36 PHOSPHATE ( PHOSPHORUS) 3.6 mg/dL 2.5- 4.5 CBC w/MANUAL DIFF - 10/01/19 14:36 WHITE BLOOD CELL COUNT 6.4 Thousand/uL 3 .8-10.8 RED BLOOD CELL COUNT 3.38 Million/uL 3.8 0-5.10 HEMOGLOBIN 10.7 g/dL 11.7-15.5 HEMATOCRIT 32.6 % 35.0-45.0 MCV 96.4 fL 80.0-100.0 MCH 31.7 pg 27.0-33.0 MCHC 32.8 g/dL 32.0-36.0 RDW 12.9 % 11.0-15.0 PLATELET COUNT 148 Thousand/uL 140-400 MPV 13.2 fL 7.5-12.5 ABSOLUTE NEUTROPHILS 3866 cells/uL 1500- 7800 ABSOLUTE MONOCYTES 314 cells/uL 200-950 ABSOLUTE EOSINOPHILS 256 cells/uL 15-500 ABSOLUTE BASOPHILS 0 cells/uL 0-200 NEUTROPHILS 60.4 % NRG LYMPHOCYTES 24.8 % NRG MONOCYTES 4.9 % NRG EOSINOPHILS 4.0 % NRG BASOPHILS 0 % NRG ABSOLUTE BAND NEUTROPHILS 314 cells/uL 0 -750 ABSOLUTE METAMYELOCYTES 64 cells/uL ABSOLUTE LYMPHOCYTES 1587 cells/uL 850-3 900 BAND NEUTROPHILS 4.9 % NRG METAMYELOCYTES 1.0 % NRG PLATELET ESTIMATION ADEQUATE ADEQUATE CBC - 10/15/19 14:46 WHITE BLOOD CELL COUNT 5.9 Thousand/uL 3 .8-10.8 RED BLOOD CELL COUNT 3.64 Million/uL 3.8 0-5.10 HEMOGLOBIN 11.2 g/dL 11.7-15.5 HEMATOCRIT 35.1 % 35.0-45.0 MCV 96.4 fL 80.0-100.0 MCH 30.8 pg 27.0-33.0 MCHC 31.9 g/dL 32.0-36.0 RDW 12.2 % 11.0-15.0 PLATELET COUNT 177 Thousand/uL 140-400 MPV 13.3 fL 7.5-12.5 ABSOLUTE NEUTROPHILS 3044 cells/uL 1500- 7800 ABSOLUTE LYMPHOCYTES 2118 cells/uL 850-3 900 ABSOLUTE MONOCYTES 496 cells/uL 200-950 ABSOLUTE EOSINOPHILS 242 cells/uL 15-500 ABSOLUTE BASOPHILS 0 cells/uL 0-200 NEUTROPHILS 51.6 % NRG LYMPHOCYTES 35.9 % NRG MONOCYTES 8.4 % NRG EOSINOPHILS 4.1 % NRG BASOPHILS 0.0 % NRG CBC - 10/22/19 14:04 WHITE BLOOD CELL COUNT 6.1 Thousand/uL 3 .8-10.8 RED BLOOD CELL COUNT 3.46 Million/uL 3.8 0-5.10 HEMOGLOBIN 10.5 g/dL 11.7-15.5 HEMATOCRIT 34.1 % 35.0-45.0 MCV 98.6 fL 80.0-100.0 MCH 30.3 pg 27.0-33.0 MCHC 30.8 g/dL 32.0-36.0 RDW 13.1 % 11.0-15.0 PLATELET COUNT 170 Thousand/uL 140-400 MPV 13.2 fL 7.5-12.5 ABSOLUTE NEUTROPHILS 3684 cells/uL 1500- 7800 ABSOLUTE LYMPHOCYTES 1787 cells/uL 850-3 900 ABSOLUTE MONOCYTES 500 cells/uL 200-950 ABSOLUTE EOSINOPHILS 128 cells/uL 15-500 ABSOLUTE BASOPHILS 0 cells/uL 0-200 NEUTROPHILS 60.4 % NRG LYMPHOCYTES 29.3 % NRG MONOCYTES 8.2 % NRG EOSINOPHILS 2.1 % NRG BASOPHILS 0.0 % NRG Encounters ACCT No. Visit Date/Time Discharge Status Pt. Type Provider Facility Loc./Unit Complaint [id number] 10/22/2019 13:30:00 10/22/2019 23:59:5 9 [id number] 10/22/2019 13:30:00 Document Registration [id number] 10/15/2019 14:00:00 Document Registration [id number] 10/01/2019 14:15:00 Document Registration [id number] 09/25/2019 16:15:00 Document Registration [id number] 09/17/2019 15:45:00 Document Registration [id number] 09/10/2019 14:15:00 Document Registration [id number] 09/04/2019 17:15:00 Document Registration [id number] 11/13/2018 17:00:00 Document Registration [id number] 11/08/2018 07:00:00 Document Registration [id number] 08/20/2019 14:07:00 23:59:59 CLS Outpatient [facility]ELF G[facility]RIEL MATTHE[facility] FS TPN ADMIN,GASTROPARESIS ,[place] UNSPECIFIED [id number] 08/13/2019 16:25:00 23:59:59 CLS Outpatient SELF GABRIEL MATTHEWS [facility] LAB FS N,V UNSPECIFIED,TPN ADMINISTRATION,GASTROPARESIS [id number] 08/06/2019 17:29:00 23:59:59 CLS Outpatient BRITNEYSHAAN WELDER [facility] LAB FS TPN ADMISTRATION,GASTROPARESIS,NAUSEA VOMITING [id number] 07/30/2019 15:12:00 23:59:59 CLS Outpatient BRITNEYSHAAN WELDER [facility]PRENTICE [facility] LAB FS [id number] 07/23/2019 16:59:00 23:59:59 CLS Outpatient BRITNEYSHAAN WELDER [facility]PRENTICE [facility] LAB FS Z76.0 1531.84 R 11.2 [id number] 07/16/2019 15:53:00 23:59:59 CLS Outpatient BRITNEYSHAAN WELDER [facility]PRENTICE G[facility] LAB FS Z76.0 [id number] 07/09/2019 12:38:00 23:59:59 CLS Outpatient SELF GABRIEL MATTHEWS [facility] LABNPT Z76.0 [id number] 07/02/2019 14:18:00 23:59:59 CLS Outpatient SELF GABRIEL MATTHEWS [facility] LAB FS Z76.0 K31.84 R11.2 [id number] 06/27/2019 15:37:00 23:59:59 CLS Outpatient BRITNEYSHAAN GALINDO WELDER [facility]PRENTICE [facility] LAB FS Z76.0 R31.84 R1 1.2 [id number] 06/26/2019 17:30:00 23:59:59 CLS Outpatient BRITNEYSHAAN GALINDO WELDER APPRENTICE [facility] LAB FS TPN GASTROPARES IS NAUSEA VOMITING [id number] 10/10/2012 10:17:00 13:45:00 DIS Inpatient [id number] 02/28/2012 15:07:00 02/28/2012 23:59: 59 CLS Outpatient [id number] 02/28/2012 15:07:00 02/28/2012 23:59:5 9 CLS Outpatient [id number] 10/16/2012 09:56:00 Document Registration
--- NOTE | 2019-10-26 16:23 | ED GI ---
General Chief Complaint: Abdominal/GI Problems Stated Complaint: VOMITING,ABD PAIN Nursing Triage Note: Has had severe abdominal pain for the past two weeks. Pain is currently rated at 10/10. Has not taken anything for pain. Has a feeding tube and picc line for TPN for gastroparesis. Pain is in the left upper and lower quadrants. Has not been able to keep anything down for the past two weeks. Sepsis Screen: No Definite Risk Source of Information: Patient Exam Limitations: No Limitations History of Present Illness Date Seen by Provider: Oct 26, 2019 Time Seen by Provider: 16:08 Initial Comments 33 y/o female w Hx of chronic GI disorder presents w worsening abdominal pain for past 2 weeks. States she can't hold down any food or liquids for 2 weeks, has constant abdominal pain and constant nausea. SEeing GI specialist @ "[facility]" in . Recently had a PIC line placed RUE for TPN. In past pt was fed through a feeding (PEG, OG and NG). Denies anorexia, states she doesn't know why she has this problem, "no one has ever told me". Recently changed PCP to [facility], Dr Cerrato, but has only seen him 1 time via TeleMed. Allergies and Home Medications Allergies Coded Allergies: No Known Drug Allergies (Unverified , 12/02/08) Home Medications Hydrocodone/Acetaminophen 5 Ml Solution, 5 ML PO Q4H PRN for PAIN-MODERATE (5-7) Prescribed by: YA KINGSLEY on 10/26/19 1904 Insulin Aspart 100 Unit/1 Ml Insuln.pen, 11 UNIT SQ AC, (Reported) Insulin Determir 100 U/Ml Insuln.pen, 17 UNITS SC HS Prescribed by: BAO JACKSON on 10/12/12 1231 Multivitamin 1 Each Tablet, 1 TAB PO DAILY, (Reported) Patient Home Medication List Home Medication List Reviewed: Yes Review of Systems Review of Systems Constitutional: see HPI; No fever; malaise EENTM: No Symptoms Reported Respiratory: Denies Cough, Denies Shortness of Air Cardiovascular: Denies Chest Pain, Denies Edema, Denies Syncope Gastrointestinal: See HPI, Abdominal Pain, Nausea, Poor Appetite, Poor Fluid Intake Musculoskeletal: No back pain, No joint pain Skin: No change in color, No rash Past Vbwuhiq-Ecnzdi-Cxzbvx Hx Past Med/Social Hx: Reviewed Nursing Past Med/Soc Hx Patient Social History Alcohol Use: Denies Use Recreational Drug Use: No Smoking Status: Never a Smoker 2nd Hand Smoke Exposure: No Recent Foreign Travel: No Contact w/Someone Who Travel: No Recent Infectious Disease Expo: No Recent Hopitalizations: Yes (TUBAL [place] 2002) Immunizations Up To Date Tetanus Booster (TDap): Less than 5yrs Seasonal Allergies Seasonal Allergies: No Past Medical History Surgeries: Yes (feeding tube; ) Gallbladder Respiratory: No Cardiac: No Neurological: No Reproductive Disorders: No Gastrointestinal: Yes (gastroparesis) Musculoskeletal: No Endocrine: Yes Diabetes, Insulin dep Cancer: No Psychosocial: No Integumentary: No Blood Disorders: No Physical Exam Vital Signs Vital Signs - First Documented 10/26/19 15:54 Temp 36.4 Pulse 125 Resp 16 B/P (MAP) 115/97 (103) Pulse Ox 97 Capillary Refill : Less Than 3 Seconds Height/Weight/BMI Height: '" Weight: lbs. oz. kg; 20.00 BMI Method:Stated General Appearance: thin (cachectic); No mild distress HEENT: normal ENT inspection Respiratory: chest non-tender, lungs clear Cardiovascular: regular rate, rhythm, no edema Gastrointestinal: soft, no organomegaly, no pulsatile mass; No distended, No guarding, No rebound; tenderness (diffuse upper abdomen and LLQ); No mass Extremities: non-tender, no pedal edema, no calf tenderness Back: normal inspection, no CVA tenderness Skin: normal color, warm/dry Focused Exam Lactate Level 10/26/19 16:47: Lactic Acid Level 1.11 Lactic Acid Level Laboratory Tests Test 10/26/19 16:47 Lactic Acid Level 1.11 MMOL/L (0.50-2.00) Progress/Results/Core Measures Results/Orders Lab Results Laboratory Tests Test 10/26/19 16:00 10/26/19 16:47 Range/Units White Blood Count 6.5 4.3-11.0 10^3/uL Red Blood Count 3.97 L 4.35-5.85 10^6/uL Hemoglobin 12.1 11.5-16.0 G/DL Hematocrit 37 35-52 % Mean Corpuscular Volume 94 80-99 FL Mean Corpuscular Hemoglobin 30 25-34 PG Mean Corpuscular Hemoglobin Concent 33 32-36 G/DL Red Cell Distribution Width 12.9 10.0-14.5 % Platelet Count 196 130-400 10^3/uL Mean Platelet Volume 12.8 H 7.4-10.4 FL Neutrophils (%) (Auto) 62 42-75 % Lymphocytes (%) (Auto) 31 12-44 % Monocytes (%) (Auto) 6 0-12 % Eosinophils (%) (Auto) 1 0-10 % Basophils (%) (Auto) 0 0-10 % Neutrophils # (Auto) 4.0 1.8-7.8 X 10^3 Lymphocytes # (Auto) 2.0 1.0-4.0 X 10^3 Monocytes # (Auto) 0.4 0.0-1.0 X 10^3 Eosinophils # (Auto) 0.1 0.0-0.3 10^3/uL Basophils # (Auto) 0.0 0.0-0.1 10^3/uL Urine Color YELLOW Urine Clarity CLEAR Urine pH 6.0 5-9 Urine Specific [place] 1.015 L 1.016-1.022 Urine Protein NEGATIVE NEGATIVE Urine Glucose (UA) 3+ H NEGATIVE Urine Ketones NEGATIVE NEGATIVE Urine Nitrite NEGATIVE NEGATIVE Urine Bilirubin NEGATIVE NEGATIVE Urine Urobilinogen 0.2 < = 1.0 MG/DL Urine Leukocyte Esterase NEGATIVE NEGATIVE Urine RBC (Auto) NEGATIVE NEGATIVE Urine RBC NONE /HPF Urine WBC NONE /HPF Urine Squamous Epithelial Cells 5-10 /HPF Urine Crystals NONE /LPF Urine Bacteria FEW H /HPF Urine Casts NONE /LPF Urine Mucus SMALL H /LPF Urine Culture Indicated NO Sodium Level 137 135-145 MMOL/L Potassium Level 3.6 3.6-5.0 MMOL/L Chloride Level 101 98-107 MMOL/L Carbon Dioxide Level 22 21-32 MMOL/L Anion Gap 14 5-14 MMOL/L Blood Urea Nitrogen 16 7-18 MG/DL Creatinine 0.48 L 0.60-1.30 MG/DL Estimat Glomerular Filtration Rate > 60 BUN/Creatinine Ratio 33 Glucose Level 163 H 70-105 MG/DL Calcium Level 9.8 8.5-10.1 MG/DL Corrected Calcium 9.9 8.5-10.1 MG/DL Total Bilirubin 0.8 0.1-1.0 MG/DL Aspartate Amino Transf (AST/SGOT) 14 5-34 U/L Alanine Aminotransferase (ALT/SGPT) 12 0-55 U/L Alkaline Phosphatase 66 40-136 U/L Total Protein 7.1 6.4-8.2 GM/DL Albumin 3.9 3.2-4.5 GM/DL Lipase 17 8-78 U/L Lactic Acid Level 1.11 0.50-2.00 MMOL/L My Orders Orders - YA KINGSLEY DO Ed Iv/Invasive Line Start (10/26/19 16:16) Cbc With Automated Diff (10/26/19 16:16) Comprehensive Metabolic Panel (10/26/19 16:16) Lipase (10/26/19 16:16) Lactic Acid Analyzer (10/26/19 16:16) Urinalysis (10/26/19 16:16) Fentanyl Injection (Sublimaze Injection (10/26/19 16:30) Ondansetron Injection (Zofran Injectio (10/26/19 16:30) Iohexol Injection (Omnipaque 350 Mg/Ml 1 (10/26/19 17:00) Received Contrast (Hold Metformin- Contr (10/26/19 17:00) Sodium Chloride Flush (Catheter Flush Sy (10/26/19 17:00) Ns (Ivpb) (Sodium Chloride 0.9% Ivpb Bag (10/26/19 17:00) Ct Abdomen/Pelvis Wo (10/26/19 16:16) Medications Given in ED Current Medications Medications Dose Ordered Sig/Karie Route Start Time Stop Time Status Last Admin Dose Admin Fentanyl Citrate 50 mcg ONCE ONCE IVP 10/26/19 16:30 10/26/19 16:31 DC 10/26/19 16:33 50 MCG Ondansetron HCl 4 mg ONCE ONCE IVP 10/26/19 16:30 10/26/19 16:31 DC 10/26/19 16:33 4 MG Sodium Chloride 10 ml NEEDED PRN IV 10/26/19 17:00 10/26/19 18:18 10 ML Vital Signs/I&O 10/26/19 15:54 Temp 36.4 Pulse 125 Resp 16 B/P (MAP) 115/97 (103) Pulse Ox 97 Blood Pressure Mean: 103 Progress Progress Note : Progress Note feeling much better after pain medication. Discussed labs and CT findings. Asked about her current medication regimen and pt admits she is not good with remembering to take her Protonix or carafate. Strongly urged to take daily as instructed as they may actually give her some relief of her upper abdominal pain. Also urged to f/u w her GI doctor regarding continued abdominal pain and inability to eat. Pt expressed understanding. Given Rx for hydrocodone susp for moderate pain. Departure Impression Primary Impression: Chronic abdominal pain Disposition: HOME, SELF-CARE Condition: Improved Departure-Patient Inst. Decision time for Depature: 19:01 Referrals: SELF,GABRIEL MATTHEWS (PCP/Family) Primary Care Physician Patient Instructions: Acute Abdomen (Belly Pain), Adult (DC) Add. Discharge Instructions: Call your GI Doctor at [facility] next week to arrange for a follow up appointment. Ask about getting an "Upper GI endoscopy" All discharge instructions reviewed with patient and/or family. Voiced understanding. Scripts Hydrocodone/Acetaminophen (Hydrocodone-Acetamin 2.5-108/5 ML) 5 Ml Solution 5 ML PO Q4H PRN for PAIN-MODERATE (5-7) for 7 Days, #100 ML Prov: YA KINGSLEY DO 10/26/19 YA KINGSLEY DO Oct 26, 2019 16:23
[2019-10-26] MEDS ORDERED: fentaNYL INJECTION 100 MCG/2 ML AMP IVP ONE (16:30)
[2019-10-26] MEDS ORDERED: ONDANSETRON 4 MG/2 ML (SDV) Z0FRAN IVP ONE (16:30)
--- NOTE | 2019-10-26 16:30 | NUR ---
This RN called Dr. Cerrato's office to call and get report. This RN spoke to SARA Elizondo and she stated pt called and got same day appointment. She had been vomiting for 2 weeks. Heart rate is normally 100s never over 135. Pt's heart rate was 146, 20 respirations, blood pressure 100/62. Zofran at home, but not taking it. She stated pt is on home health, and saw her and she never mentioned anything about vomiting for 2 weeks.
[2019-10-26 16:35] LABS: BASOPHILS % (AUTO) 0 % (0-10); EOSINOPHILS % (AUTO) 1 % (0-10); HEMATOCRIT 37 % (35-52); HEMOGLOBIN 12.1 G/DL (11.5-16.0); LYMPHOCYTES % (AUTO) 31 % (12-44); MEAN CORPUSCULAR HEMOGLOBIN 30 PG (25-34); MEAN CORPUSCULAR HGB CONC 33 G/DL (32-36); MEAN CORPUSCULAR VOLUME 94 FL (80-99); MEAN PLATELET VOLUME 12.8 FL (7.4-10.4); MONOCYTES % (AUTO) 6 % (0-12); NEUTROPHILS % (AUTO) 62 % (42-75); PLATELET COUNT 196 10^3/uL (130-400); RED CELL DISTRIBUTION WIDTH 12.9 % (10.0-14.5); WHITE BLOOD COUNT 6.5 10^3/uL (4.3-11.0)
[2019-10-26 16:36] LABS: EOSINOPHILS # (AUTO) 0.1 10^3/uL (0.0-0.3); MONOCYTES # (AUTO) 0.4 X 10^3 (0.0-1.0)
[2019-10-26 16:40] LABS: BACTERIA,URINE FEW /HPF; BILIRUBIN,URINE NEGATIVE (NEGATIVE); CLARITY,URINE CLEAR; COLOR,URINE YELLOW; GLUCOSE, URINE (UA) 3+ (NEGATIVE); KETONES,URINE NEGATIVE (NEGATIVE); LEUKOCYTE ESTERASE ,URINE NEGATIVE (NEGATIVE); NITRITE,URINE NEGATIVE (NEGATIVE); PROTEIN,URINE NEGATIVE (NEGATIVE)
[2019-10-26 16:48] LABS: ALANINE AMINOTRANSFERASE 12 U/L (0-55); ALKALINE PHOSPHATASE 66 U/L (40-136); BILIRUBIN,TOTAL 0.8 MG/DL (0.1-1.0); BUN/CREATININE RATIO 33; CALCIUM 9.8 MG/DL (8.5-10.1); CARBON DIOXIDE 22 MMOL/L (21-32); CHLORIDE 101 MMOL/L (98-107); CREATININE SERUM 0.48 MG/DL (0.60-1.30); GFR ESTIMATED > 60; GLUCOSE 163 MG/DL (70-105); POTASSIUM 3.6 MMOL/L (3.6-5.0); SODIUM 137 MMOL/L (135-145); TOTAL PROTEIN 7.1 GM/DL (6.4-8.2)
[2019-10-26 16:49] LABS: ALBUMIN 3.9 GM/DL (3.2-4.5); LIPASE 17 U/L (8-78)
[2019-10-26] MEDS ORDERED: HOLD METFORMIN - RECEIVED CONTRAST 20 ML VIAL IV SCH (17:00)
[2019-10-26] MEDS ORDERED: IOHEXOL 350 MG/ML 100 ML (OMNIPAQUE 350) VIAL IV ONE (17:00)
[2019-10-26] MEDS ORDERED: NS 100 ML (IVPB) BAG IV ONE (17:00)
[2019-10-26] MEDS ORDERED: CATHETER FLUSH 10 ML SYR IV PRN (17:00)
--- NOTE | 2019-10-26 18:36 | Diagnostic Imaging Report ---
PROCEDURE: CT abdomen and pelvis without contrast. TECHNIQUE: Multiple contiguous axial images were obtained through the abdomen and pelvis without the use of intravenous contrast. Auto Exposure Controls were utilized during the CT exam to meet ALARA standards for radiation dose reduction. DATE: October 26, 2019. COMPARISON: None. INDICATION: 33-year-old female, left lower quadrant abdominal pain. Nausea, vomiting, diarrhea. FINDINGS: There are limitations for evaluation of the abdominal organs, neoplastic processes, abscess, and limited evaluation of the vasculature relating to the lack of intravenous contrast. The visualized portions of the lungs are clear. The heart is not enlarged. There is no pericardial effusion. The liver is normal in size and contour. The gallbladder is surgically absent. There is no biliary ductal dilation. The main pancreatic duct is not grossly dilated. Very limited noncontrast evaluation of the pancreatic parenchyma is unremarkable. The spleen is normal in size. The adrenal glands are unremarkable. Unremarkable appearance of the renal parenchyma. The urinary collecting systems are not distended. There is no identified renal or ureteral stone. The urinary bladder is unremarkable. There is wall thickening at the level of the distal sigmoid colon and rectum. There is a trace amount of free pelvic fluid. There is mild generalized peritoneal strandiness. There is no free intraperitoneal air. There is no evidence to suggest acute appendicitis. There is no drainable fluid collection. There is no identified abnormally enlarged lymph node in the abdomen or pelvis specifically meeting CT size criteria for adenopathy. There is no identified acute bony abnormality. IMPRESSION: CT abdomen and pelvis: 1. Nonspecific wall thickening of the distal sigmoid colon and rectum which may relate to a nonspecific colitis. Infectious and inflammatory etiologies would be favored. 2. Generalized peritoneal stranding which is nonspecific. 3. Very small amount of free pelvic fluid of unclear exact etiology although possibly physiologic. Dictated by: Dictated on workstation # [id number]
[2019-10-26] MEDS ORDERED: HYDR5SOL2 PO (19:04)
[2019-10-26 19:07] VITALS: BP 98/62
== END 2019-10-26 19:08 | disposition home or self-care (01) ==
LOC: EDUNIT# 15:46 → ER FS 15:48
DX: G89.29 Other chronic pain (principal); R10.11 Right upper quadrant pain; R10.12 Left upper quadrant pain; R10.32 Left lower quadrant pain; E11.43 Type 2 diabetes mellitus with diabetic autonomic (poly)neuropathy; K31.84 Gastroparesis; Z79.4 Long term (current) use of insulin; Z87.19 Personal history of other diseases of the digestive system
CPT/HCPCS: 36415; 74176; 80053; 81000; 83605; 83690; 84703; 85025

== ENCOUNTER → 2019-12-24 | Outpatient (CLI) | payer OTHER, MEDICAID ==
[~2019-12-24] MED LIST changes: +HYDR5SOL2 PO
[2019-12-24 13:21] LABS: HEMATOCRIT 33 % (35-52); HEMOGLOBIN 10.6 G/DL (11.5-16.0); LYMPHOCYTES % (AUTO) 30 % (12-44); MEAN CORPUSCULAR HEMOGLOBIN 31 PG (25-34); MEAN CORPUSCULAR HGB CONC 33 G/DL (32-36); MEAN CORPUSCULAR VOLUME 96 FL (80-99); NEUTROPHILS % (AUTO) 62 % (42-75); PLATELET COUNT 156 10^3/uL (130-400); RED CELL DISTRIBUTION WIDTH 12.8 % (10.0-14.5); WHITE BLOOD COUNT 7.2 10^3/uL (4.3-11.0)
[2019-12-24 13:22] LABS: BASOPHILS % (AUTO) 0 % (0-10); EOSINOPHILS % (AUTO) 0 % (0-10); LYMPHOCYTES # (AUTO) 2.2 X 10^3 (1.0-4.0); MONOCYTES # (AUTO) 0.5 X 10^3 (0.0-1.0); MONOCYTES % (AUTO) 8 % (0-12); NEUTROPHILS # (AUTO) 4.5 X 10^3 (1.8-7.8)
[2019-12-24 13:27] LABS: ALANINE AMINOTRANSFERASE 40 U/L (0-55); ALKALINE PHOSPHATASE 136 U/L (40-136); BILIRUBIN,TOTAL 0.4 MG/DL (0.1-1.0); BUN/CREATININE RATIO 36; CALCIUM 9.3 MG/DL (8.5-10.1); CARBON DIOXIDE 23 MMOL/L (21-32); CHLORIDE 103 MMOL/L (98-107); CREATININE SERUM 0.47 MG/DL (0.60-1.30); GFR ESTIMATED > 60; GLUCOSE 177 MG/DL (70-105); MAGNESIUM 1.7 MG/DL (1.6-2.4); POTASSIUM 5.1 MMOL/L (3.6-5.0); SODIUM 138 MMOL/L (135-145); TOTAL PROTEIN 6.3 GM/DL (6.4-8.2)
[2019-12-24 13:28] LABS: ALBUMIN 3.6 GM/DL (3.2-4.5)
[2019-12-24 14:29] LABS: PHOSPHORUS 4.6 MG/DL (2.3-4.7)
== END ==
LOC: IHC 12:14
PROVIDERS: ATTEND Family Medicine
DX: K31.84 Gastroparesis (principal); R11.2 Nausea with vomiting, unspecified
CPT/HCPCS: 80053; 83735; 84100; 85025

== ENCOUNTER → 2019-12-31 | Outpatient (CLI) | payer OTHER, MEDICAID ==
[2019-12-31 16:17] LABS: BASOPHILS % (AUTO) 0 % (0-10); EOSINOPHILS % (AUTO) 0 % (0-10); HEMATOCRIT 34 % (35-52); HEMOGLOBIN 11.1 G/DL (11.5-16.0); LYMPHOCYTES # (AUTO) 2.3 X 10^3 (1.0-4.0); LYMPHOCYTES % (AUTO) 41 % (12-44); MEAN CORPUSCULAR HEMOGLOBIN 31 PG (25-34); MEAN CORPUSCULAR HGB CONC 33 G/DL (32-36); MEAN CORPUSCULAR VOLUME 94 FL (80-99); MEAN PLATELET VOLUME 13.5 FL (7.4-10.4); MONOCYTES # (AUTO) 0.5 X 10^3 (0.0-1.0); MONOCYTES % (AUTO) 9 % (0-12); NEUTROPHILS # (AUTO) 2.8 X 10^3 (1.8-7.8); NEUTROPHILS % (AUTO) 50 % (42-75); PLATELET COUNT 176 10^3/uL (130-400); WHITE BLOOD COUNT 5.5 10^3/uL (4.3-11.0)
[2019-12-31 17:13] LABS: ALANINE AMINOTRANSFERASE 43 U/L (0-55); ALBUMIN 3.6 GM/DL (3.2-4.5); ALKALINE PHOSPHATASE 134 U/L (40-136); BILIRUBIN,TOTAL 0.5 MG/DL (0.1-1.0); BUN/CREATININE RATIO 43; CARBON DIOXIDE 25 MMOL/L (21-32); CHLORIDE 99 MMOL/L (98-107); CREATININE SERUM 0.44 MG/DL (0.60-1.30); GFR ESTIMATED > 60; GLUCOSE 221 MG/DL (70-105); MAGNESIUM 1.8 MG/DL (1.6-2.4); POTASSIUM 4.6 MMOL/L (3.6-5.0); SODIUM 135 MMOL/L (135-145); TOTAL PROTEIN 6.4 GM/DL (6.4-8.2)
[2020-01-01 15:05] LABS: PHOSPHORUS 4.5 MG/DL (2.3-4.7)
== END ==
LOC: LAB FS 15:55
PROVIDERS: ATTEND Family Medicine
DX: K31.84 Gastroparesis (principal); R11.2 Nausea with vomiting, unspecified; Z76.0 Encounter for issue of repeat prescription
CPT/HCPCS: 36415; 80053; 83735; 84100; 85025

== ENCOUNTER → 2020-01-14 | Outpatient (CLI) | payer OTHER, MEDICAID ==
[2020-01-14 16:17] LABS: HEMATOCRIT 35 % (35-52); LYMPHOCYTES % (AUTO) 36 % (12-44); MEAN CORPUSCULAR HEMOGLOBIN 31 PG (25-34); MEAN CORPUSCULAR HGB CONC 32 G/DL (32-36); MEAN CORPUSCULAR VOLUME 97 FL (80-99); MEAN PLATELET VOLUME 13.9 FL (7.4-10.4); NEUTROPHILS % (AUTO) 58 % (42-75); PLATELET COUNT 167 10^3/uL (130-400); WHITE BLOOD COUNT 5.5 10^3/uL (4.3-11.0)
[2020-01-14 16:18] LABS: BASOPHILS % (AUTO) 0 % (0-10); EOSINOPHILS % (AUTO) 0 % (0-10); MONOCYTES # (AUTO) 0.3 X 10^3 (0.0-1.0); MONOCYTES % (AUTO) 6 % (0-12); NEUTROPHILS # (AUTO) 3.2 X 10^3 (1.8-7.8)
[2020-01-14 17:07] LABS: BUN/CREATININE RATIO 40; CARBON DIOXIDE 26 MMOL/L (21-32); CHLORIDE 98 MMOL/L (98-107); CREATININE SERUM 0.42 MG/DL (0.60-1.30); GFR ESTIMATED > 60; POTASSIUM 4.1 MMOL/L (3.6-5.0); SODIUM 136 MMOL/L (135-145)
[2020-01-14 17:08] LABS: ALANINE AMINOTRANSFERASE 23 U/L (0-55); ALBUMIN 3.5 GM/DL (3.2-4.5); ALKALINE PHOSPHATASE 117 U/L (40-136); BILIRUBIN,TOTAL 0.5 MG/DL (0.1-1.0); GLUCOSE 288 MG/DL (70-105); MAGNESIUM 1.6 MG/DL (1.6-2.4); TOTAL PROTEIN 6.5 GM/DL (6.4-8.2)
[2020-01-15 08:27] LABS: PHOSPHORUS 3.5 MG/DL (2.3-4.7)
== END ==
LOC: LAB FS 16:00
PROVIDERS: ATTEND Family Medicine
DX: K31.84 Gastroparesis (principal); E43 Unspecified severe protein-calorie malnutrition
CPT/HCPCS: 36415; 80053; 83735; 84100; 85025

== ENCOUNTER → 2020-02-18 | Outpatient (CLI) | payer OTHER, MEDICAID ==
[2020-02-18 14:02] LABS: EOSINOPHILS % (AUTO) 0 % (0-10); HEMATOCRIT 29 % (35-52); HEMOGLOBIN 9.5 G/DL (11.5-16.0); LYMPHOCYTES % (AUTO) 20 % (12-44); MEAN CORPUSCULAR HEMOGLOBIN 30 PG (25-34); MEAN CORPUSCULAR HGB CONC 32 G/DL (32-36); MEAN CORPUSCULAR VOLUME 92 FL (80-99); MEAN PLATELET VOLUME 13.5 FL (7.4-10.4); MONOCYTES % (AUTO) 8 % (0-12); NEUTROPHILS % (AUTO) 73 % (42-75); PLATELET COUNT 177 10^3/uL (130-400); WHITE BLOOD COUNT 6.2 10^3/uL (4.3-11.0)
[2020-02-18 14:03] LABS: BASOPHILS % (AUTO) 0 % (0-10); LYMPHOCYTES # (AUTO) 1.2 X 10^3 (1.0-4.0); MONOCYTES # (AUTO) 0.5 X 10^3 (0.0-1.0); NEUTROPHILS # (AUTO) 4.5 X 10^3 (1.8-7.8)
[2020-02-18 14:19] LABS: BUN/CREATININE RATIO 30; CALCIUM 9.2 MG/DL (8.5-10.1); CARBON DIOXIDE 26 MMOL/L (21-32); CHLORIDE 102 MMOL/L (98-107); CREATININE SERUM 0.44 MG/DL (0.60-1.30); GFR ESTIMATED > 60; GLUCOSE 195 MG/DL (70-105); POTASSIUM 4.6 MMOL/L (3.6-5.0); SODIUM 137 MMOL/L (135-145)
[2020-02-18 14:20] LABS: ALANINE AMINOTRANSFERASE 18 U/L (0-55); ALBUMIN 3.2 GM/DL (3.2-4.5); ALKALINE PHOSPHATASE 138 U/L (40-136); BILIRUBIN,TOTAL 0.4 MG/DL (0.1-1.0); MAGNESIUM 1.8 MG/DL (1.6-2.4)
[2020-02-19 03:00] LABS: PHOSPHORUS 3.9 MG/DL (2.3-4.7)
== END ==
LOC: LAB FS 13:36
PROVIDERS: ATTEND Family Medicine
DX: Z76.0 Encounter for issue of repeat prescription (principal); K31.84 Gastroparesis
CPT/HCPCS: 36415; 80053; 83735; 84100; 85025

== ENCOUNTER → 2020-04-07 | Outpatient (CLI) | payer OTHER, MEDICAID ==
[2020-04-07 13:29] LABS: BASOPHILS % (AUTO) 0 % (0-10); EOSINOPHILS % (AUTO) 0 % (0-10); HEMATOCRIT 28 % (35-52); HEMOGLOBIN 8.5 G/DL (11.5-16.0); LYMPHOCYTES # (AUTO) 1.9 X 10^3 (1.0-4.0); LYMPHOCYTES % (AUTO) 28 % (12-44); MEAN CORPUSCULAR HEMOGLOBIN 27 PG (25-34); MEAN CORPUSCULAR HGB CONC 31 G/DL (32-36); MEAN CORPUSCULAR VOLUME 89 FL (80-99); MEAN PLATELET VOLUME 12.7 FL (7.4-10.4); MONOCYTES # (AUTO) 0.5 X 10^3 (0.0-1.0); MONOCYTES % (AUTO) 8 % (0-12); NEUTROPHILS # (AUTO) 4.3 X 10^3 (1.8-7.8); NEUTROPHILS % (AUTO) 65 % (42-75); PLATELET COUNT 229 10^3/uL (130-400); WHITE BLOOD COUNT 6.7 10^3/uL (4.3-11.0)
[2020-04-07 13:54] LABS: ALANINE AMINOTRANSFERASE 16 U/L (0-55); ALBUMIN 3.5 GM/DL (3.2-4.5); ALKALINE PHOSPHATASE 156 U/L (40-136); BILIRUBIN,TOTAL 0.3 MG/DL (0.1-1.0); BUN/CREATININE RATIO 33; CALCIUM 9.4 MG/DL (8.5-10.1); CARBON DIOXIDE 20 MMOL/L (21-32); CHLORIDE 104 MMOL/L (98-107); CREATININE SERUM 0.91 MG/DL (0.60-1.30); GFR ESTIMATED > 60; GLUCOSE 125 MG/DL (70-105); MAGNESIUM 1.8 MG/DL (1.6-2.4); POTASSIUM 4.7 MMOL/L (3.6-5.0); SODIUM 133 MMOL/L (135-145)
[2020-04-08 15:26] LABS: PHOSPHORUS 4.4 MG/DL (2.3-4.7)
== END ==
LOC: LAB FS 13:07
DX: K31.84 Gastroparesis (principal); E43 Unspecified severe protein-calorie malnutrition; E10.42 Type 1 diabetes mellitus with diabetic polyneuropathy
CPT/HCPCS: 36415; 80053; 83735; 84100; 85025

== ENCOUNTER → 2020-04-14 | Outpatient (CLI) | payer OTHER, MEDICAID ==
[2020-04-14 14:46] LABS: BASOPHILS % (AUTO) 0 % (0-10); EOSINOPHILS % (AUTO) 1 % (0-10); HEMATOCRIT 29 % (35-52); HEMOGLOBIN 8.9 G/DL (11.5-16.0); LYMPHOCYTES % (AUTO) 27 % (12-44); MEAN CORPUSCULAR HEMOGLOBIN 28 PG (25-34); MEAN CORPUSCULAR HGB CONC 31 G/DL (32-36); MEAN CORPUSCULAR VOLUME 885 FL (80-99); MEAN PLATELET VOLUME 13.3 FL (7.4-10.4); MONOCYTES % (AUTO) 5 % (0-12); NEUTROPHILS % (AUTO) 67 % (42-75); PLATELET COUNT 175 10^3/uL (130-400); WHITE BLOOD COUNT 5.6 10^3/uL (4.3-11.0)
[2020-04-14 14:47] LABS: LYMPHOCYTES # (AUTO) 1.5 X 10^3 (1.0-4.0); MONOCYTES # (AUTO) 0.3 X 10^3 (0.0-1.0); NEUTROPHILS # (AUTO) 3.7 X 10^3 (1.8-7.8)
[2020-04-14 15:09] LABS: ALANINE AMINOTRANSFERASE 17 U/L (0-55); ALBUMIN 3.5 GM/DL (3.2-4.5); ALKALINE PHOSPHATASE 158 U/L (40-136); BILIRUBIN,TOTAL 0.4 MG/DL (0.1-1.0); BUN/CREATININE RATIO 38; CALCIUM 9.6 MG/DL (8.5-10.1); CARBON DIOXIDE 20 MMOL/L (21-32); CHLORIDE 103 MMOL/L (98-107); GFR ESTIMATED > 60; GLUCOSE 237 MG/DL (70-105); MAGNESIUM 1.6 MG/DL (1.6-2.4); POTASSIUM 4.7 MMOL/L (3.6-5.0); SODIUM 136 MMOL/L (135-145); TOTAL PROTEIN 7.1 GM/DL (6.4-8.2)
[2020-04-15 15:18] LABS: PHOSPHORUS 3.9 MG/DL (2.3-4.7)
== END ==
LOC: LAB FS 14:30
DX: E10.43 Type 1 diabetes mellitus with diabetic autonomic (poly)neuropathy (principal); E43 Unspecified severe protein-calorie malnutrition; D64.9 Anemia, unspecified; K31.84 Gastroparesis
CPT/HCPCS: 36415; 80053; 83735; 84100; 85025

== ENCOUNTER → 2020-04-21 | Outpatient (CLI) | payer OTHER, MEDICAID ==
[2020-04-21 12:38] LABS: BASOPHILS % (AUTO) 0 % (0-10); EOSINOPHILS % (AUTO) 2 % (0-10); HEMATOCRIT 29 % (35-52); HEMOGLOBIN 8.9 G/DL (11.5-16.0); LYMPHOCYTES % (AUTO) 29 % (12-44); MEAN CORPUSCULAR HEMOGLOBIN 27 PG (25-34); MEAN CORPUSCULAR HGB CONC 31 G/DL (32-36); MEAN CORPUSCULAR VOLUME 89 FL (80-99); MEAN PLATELET VOLUME 13.1 FL (7.4-10.4); MONOCYTES % (AUTO) 7 % (0-12); NEUTROPHILS % (AUTO) 63 % (42-75); PLATELET COUNT 144 10^3/uL (130-400); WHITE BLOOD COUNT 5.5 10^3/uL (4.3-11.0)
[2020-04-21 12:39] LABS: EOSINOPHILS # (AUTO) 0.1 10^3/uL (0.0-0.3); LYMPHOCYTES # (AUTO) 1.6 X 10^3 (1.0-4.0); MONOCYTES # (AUTO) 0.4 X 10^3 (0.0-1.0); NEUTROPHILS # (AUTO) 3.4 X 10^3 (1.8-7.8)
[2020-04-21 12:57] LABS: ALKALINE PHOSPHATASE 146 U/L (40-136); BILIRUBIN,TOTAL 0.4 MG/DL (0.1-1.0); BUN/CREATININE RATIO 35; CALCIUM 9.3 MG/DL (8.5-10.1); CARBON DIOXIDE 17 MMOL/L (21-32); CHLORIDE 106 MMOL/L (98-107); CREATININE SERUM 0.81 MG/DL (0.60-1.30); GFR ESTIMATED > 60; GLUCOSE 191 MG/DL (70-105); MAGNESIUM 1.7 MG/DL (1.6-2.4); POTASSIUM 4.6 MMOL/L (3.6-5.0); SODIUM 137 MMOL/L (135-145)
[2020-04-21 12:58] LABS: ALANINE AMINOTRANSFERASE 26 U/L (0-55); ALBUMIN 3.6 GM/DL (3.2-4.5); TOTAL PROTEIN 6.7 GM/DL (6.4-8.2)
[2020-04-21 15:14] LABS: PHOSPHORUS 4.2 MG/DL (2.3-4.7)
== END ==
LOC: LAB FS 12:26
DX: E10.43 Type 1 diabetes mellitus with diabetic autonomic (poly)neuropathy (principal); E43 Unspecified severe protein-calorie malnutrition
CPT/HCPCS: 36415; 80053; 83735; 84100; 85025

== ENCOUNTER → 2020-04-28 | Outpatient (CLI) | payer OTHER, MEDICAID ==
[2020-04-28 12:42] LABS: BASOPHILS % (AUTO) 0 % (0-10); EOSINOPHILS % (AUTO) 2 % (0-10); HEMATOCRIT 30 % (35-52); HEMOGLOBIN 9.2 G/DL (11.5-16.0); LYMPHOCYTES % (AUTO) 35 % (12-44); MEAN CORPUSCULAR HEMOGLOBIN 28 PG (25-34); MEAN CORPUSCULAR HGB CONC 31 G/DL (32-36); MEAN CORPUSCULAR VOLUME 89 FL (80-99); MEAN PLATELET VOLUME 12.9 FL (7.4-10.4); MONOCYTES % (AUTO) 9 % (0-12); NEUTROPHILS % (AUTO) 54 % (42-75); PLATELET COUNT 192 10^3/uL (130-400); WHITE BLOOD COUNT 4.9 10^3/uL (4.3-11.0)
[2020-04-28 12:43] LABS: ATYPICAL LYMPHOCYTES 9 %; BAND NEUTROPHILS 3 %; BASOPHILS % (MANUAL) 0 %; EOSINOPHILS # (AUTO) 0.1 10^3/uL (0.0-0.3); EOSINOPHILS % (MANUAL) 2 %; LYMPHOCYTES # (AUTO) 1.7 X 10^3 (1.0-4.0); LYMPHOCYTES % (MANUAL) 27 %; MONOCYTES # (AUTO) 0.4 X 10^3 (0.0-1.0); MONOCYTES % (MANUAL) 9 %; NEUTROPHILS # (AUTO) 2.6 X 10^3 (1.8-7.8); NEUTROPHILS % (MANUAL) 50 %
[2020-04-28 12:44] LABS: HYPOCHROMASIA 1+; MICROCYTOSIS 1+
[2020-04-28 13:33] LABS: BUN/CREATININE RATIO 37; CALCIUM 9.5 MG/DL (8.5-10.1); CARBON DIOXIDE 21 MMOL/L (21-32); CHLORIDE 106 MMOL/L (98-107); CREATININE SERUM 0.68 MG/DL (0.60-1.30); GFR ESTIMATED > 60; GLUCOSE 172 MG/DL (70-105); MAGNESIUM 1.8 MG/DL (1.6-2.4); POTASSIUM 4.7 MMOL/L (3.6-5.0); SODIUM 136 MMOL/L (135-145)
[2020-04-28 13:34] LABS: ALANINE AMINOTRANSFERASE 31 U/L (0-55); ALBUMIN 3.6 GM/DL (3.2-4.5); ALKALINE PHOSPHATASE 162 U/L (40-136); BILIRUBIN,TOTAL 0.3 MG/DL (0.1-1.0); TOTAL PROTEIN 6.9 GM/DL (6.4-8.2)
[2020-04-28 14:44] LABS: PHOSPHORUS 4.2 MG/DL (2.3-4.7)
== END ==
LOC: LAB FS 11:41
DX: E10.43 Type 1 diabetes mellitus with diabetic autonomic (poly)neuropathy (principal); E43 Unspecified severe protein-calorie malnutrition; D64.9 Anemia, unspecified
CPT/HCPCS: 36415; 80053; 83735; 84100; 85007; 85027

== ENCOUNTER → 2020-05-05 | Outpatient (CLI) | payer OTHER, MEDICAID ==
[2020-05-05 12:49] LABS: BASOPHILS % (AUTO) 0 % (0-10); EOSINOPHILS % (AUTO) 2 % (0-10); HEMATOCRIT 32 % (35-52); HEMOGLOBIN 9.6 G/DL (11.5-16.0); LYMPHOCYTES % (AUTO) 46 % (12-44); MEAN CORPUSCULAR HEMOGLOBIN 28 PG (25-34); MEAN CORPUSCULAR HGB CONC 30 G/DL (32-36); MEAN CORPUSCULAR VOLUME 92 FL (80-99); MEAN PLATELET VOLUME 12.8 FL (7.4-10.4); MONOCYTES % (AUTO) 10 % (0-12); NEUTROPHILS # (AUTO) 2.4 X 10^3 (1.8-7.8); NEUTROPHILS % (AUTO) 42 % (42-75); PLATELET COUNT 205 10^3/uL (130-400); WHITE BLOOD COUNT 5.8 10^3/uL (4.3-11.0)
[2020-05-05 12:50] LABS: CHLORIDE 104 MMOL/L (98-107); EOSINOPHILS # (AUTO) 0.1 10^3/uL (0.0-0.3); LYMPHOCYTES # (AUTO) 2.7 X 10^3 (1.0-4.0); MONOCYTES # (AUTO) 0.6 X 10^3 (0.0-1.0); POTASSIUM 4.5 MMOL/L (3.6-5.0); SODIUM 138 MMOL/L (135-145)
[2020-05-05 12:51] LABS: ALANINE AMINOTRANSFERASE 28 U/L (0-55); ALBUMIN 3.6 GM/DL (3.2-4.5); ALKALINE PHOSPHATASE 168 U/L (40-136); BILIRUBIN,TOTAL 0.3 MG/DL (0.1-1.0); BUN/CREATININE RATIO 36; CALCIUM 9.7 MG/DL (8.5-10.1); CARBON DIOXIDE 22 MMOL/L (21-32); CREATININE SERUM 0.72 MG/DL (0.60-1.30); GFR ESTIMATED > 60; GLUCOSE 70 MG/DL (70-105); MAGNESIUM 1.7 MG/DL (1.6-2.4); TOTAL PROTEIN 6.7 GM/DL (6.4-8.2)
[2020-05-05 15:04] LABS: PHOSPHORUS 4.5 MG/DL (2.3-4.7)
== END ==
LOC: LAB FS 10:44
PROVIDERS: ATTEND Nurse Practitioner
DX: E10.43 Type 1 diabetes mellitus with diabetic autonomic (poly)neuropathy (principal); E43 Unspecified severe protein-calorie malnutrition
CPT/HCPCS: 36415; 80053; 83735; 84100; 85025

== ENCOUNTER → 2020-05-12 | Outpatient (CLI) | payer OTHER, MEDICAID ==
[2020-05-12 12:00] LABS: HEMATOCRIT 30 % (35-52); HEMOGLOBIN 9.3 G/DL (11.5-16.0); MEAN CORPUSCULAR HEMOGLOBIN 29 PG (25-34); MEAN CORPUSCULAR HGB CONC 31 G/DL (32-36); MEAN CORPUSCULAR VOLUME 91 FL (80-99); PLATELET COUNT 165 10^3/uL (130-400); WHITE BLOOD COUNT 5.8 10^3/uL (4.3-11.0)
[2020-05-12 12:01] LABS: BASOPHILS % (AUTO) 0 % (0-10); EOSINOPHILS # (AUTO) 0.1 10^3/uL (0.0-0.3); EOSINOPHILS % (AUTO) 2 % (0-10); LYMPHOCYTES # (AUTO) 2.2 X 10^3 (1.0-4.0); LYMPHOCYTES % (AUTO) 39 % (12-44); MEAN PLATELET VOLUME 14.1 FL (7.4-10.4); MONOCYTES # (AUTO) 0.5 X 10^3 (0.0-1.0); MONOCYTES % (AUTO) 9 % (0-12); NEUTROPHILS # (AUTO) 2.9 X 10^3 (1.8-7.8); NEUTROPHILS % (AUTO) 51 % (42-75)
[2020-05-12 12:27] LABS: BUN/CREATININE RATIO 33; CARBON DIOXIDE 23 MMOL/L (21-32); CHLORIDE 104 MMOL/L (98-107); CREATININE SERUM 0.75 MG/DL (0.60-1.30); GFR ESTIMATED > 60; POTASSIUM 4.6 MMOL/L (3.6-5.0); SODIUM 137 MMOL/L (135-145)
[2020-05-12 12:28] LABS: ALANINE AMINOTRANSFERASE 77 U/L (0-55); ALBUMIN 3.6 GM/DL (3.2-4.5); ALKALINE PHOSPHATASE 261 U/L (40-136); BILIRUBIN,TOTAL 0.4 MG/DL (0.1-1.0); CALCIUM 9.3 MG/DL (8.5-10.1); GLUCOSE 91 MG/DL (70-105); MAGNESIUM 1.8 MG/DL (1.6-2.4); TOTAL PROTEIN 6.5 GM/DL (6.4-8.2)
[2020-05-12 15:00] LABS: PHOSPHORUS 4.5 MG/DL (2.3-4.7)
== END ==
LOC: LAB FS 11:41
DX: E10.43 Type 1 diabetes mellitus with diabetic autonomic (poly)neuropathy (principal); E43 Unspecified severe protein-calorie malnutrition
CPT/HCPCS: 36415; 80053; 83735; 84100; 85025

== ENCOUNTER → 2020-06-09 | Outpatient (CLI) | payer OTHER, MEDICAID ==
[2020-06-09 13:03] LABS: BASOPHILS % (AUTO) 0 % (0-10); EOSINOPHILS % (AUTO) 3 % (0-10); HEMATOCRIT 30 % (35-52); HEMOGLOBIN 9.6 G/DL (11.5-16.0); LYMPHOCYTES % (AUTO) 36 % (12-44); MEAN CORPUSCULAR HEMOGLOBIN 29 PG (25-34); MEAN CORPUSCULAR HGB CONC 32 G/DL (32-36); MEAN CORPUSCULAR VOLUME 93 FL (80-99); MEAN PLATELET VOLUME 13.8 FL (7.4-10.4); MONOCYTES % (AUTO) 10 % (0-12); NEUTROPHILS % (AUTO) 52 % (42-75); PLATELET COUNT 162 10^3/uL (130-400); WHITE BLOOD COUNT 5.9 10^3/uL (4.3-11.0)
[2020-06-09 13:04] LABS: BUN/CREATININE RATIO 39; CARBON DIOXIDE 23 MMOL/L (21-32); CHLORIDE 104 MMOL/L (98-107); CREATININE SERUM 0.72 MG/DL (0.60-1.30); EOSINOPHILS # (AUTO) 0.2 10^3/uL (0.0-0.3); GFR ESTIMATED > 60; LYMPHOCYTES # (AUTO) 2.1 X 10^3 (1.0-4.0); MONOCYTES # (AUTO) 0.6 X 10^3 (0.0-1.0); NEUTROPHILS # (AUTO) 3.1 X 10^3 (1.8-7.8); POTASSIUM 4.3 MMOL/L (3.6-5.0); SODIUM 137 MMOL/L (135-145)
[2020-06-09 13:05] LABS: ALANINE AMINOTRANSFERASE 51 U/L (0-55); ALBUMIN 3.4 GM/DL (3.2-4.5); ALKALINE PHOSPHATASE 211 U/L (40-136); BILIRUBIN,TOTAL 0.3 MG/DL (0.1-1.0); CALCIUM 9.1 MG/DL (8.5-10.1); GLUCOSE 143 MG/DL (70-105); MAGNESIUM 2.2 MG/DL (1.6-2.4); TOTAL PROTEIN 6.4 GM/DL (6.4-8.2)
[2020-06-09 15:17] LABS: PHOSPHORUS 3.7 MG/DL (2.3-4.7)
== END ==
LOC: LAB FS 11:34
PROVIDERS: ATTEND Family Medicine
DX: D64.9 Anemia, unspecified (principal); E43 Unspecified severe protein-calorie malnutrition
CPT/HCPCS: 36415; 80053; 83735; 84100; 85025

== ENCOUNTER → 2020-06-16 | Outpatient (CLI) | payer OTHER, MEDICAID ==
[2020-06-16 11:22] LABS: WHITE BLOOD COUNT 5.9 10^3/uL (4.3-11.0)
[2020-06-16 11:23] LABS: BASOPHILS % (AUTO) 0 % (0-10); EOSINOPHILS % (AUTO) 4 % (0-10); HEMATOCRIT 31 % (35-52); HEMOGLOBIN 9.7 G/DL (11.5-16.0); LYMPHOCYTES % (AUTO) 33 % (12-44); MEAN CORPUSCULAR HEMOGLOBIN 29 PG (25-34); MEAN CORPUSCULAR HGB CONC 32 G/DL (32-36); MEAN CORPUSCULAR VOLUME 92 FL (80-99); MEAN PLATELET VOLUME 14.3 FL (7.4-10.4); MONOCYTES % (AUTO) 7 % (0-12); NEUTROPHILS # (AUTO) 3.3 X 10^3 (1.8-7.8); NEUTROPHILS % (AUTO) 56 % (42-75); PLATELET COUNT 158 10^3/uL (130-400)
[2020-06-16 11:24] LABS: EOSINOPHILS # (AUTO) 0.2 10^3/uL (0.0-0.3); LYMPHOCYTES # (AUTO) 1.9 X 10^3 (1.0-4.0); MONOCYTES # (AUTO) 0.4 X 10^3 (0.0-1.0)
[2020-06-16 11:42] LABS: ALANINE AMINOTRANSFERASE 38 U/L (0-55); ALKALINE PHOSPHATASE 184 U/L (40-136); BILIRUBIN,TOTAL 0.3 MG/DL (0.1-1.0); BUN/CREATININE RATIO 34; CALCIUM 9.1 MG/DL (8.5-10.1); CARBON DIOXIDE 22 MMOL/L (21-32); CHLORIDE 105 MMOL/L (98-107); CREATININE SERUM 0.68 MG/DL (0.60-1.30); GFR ESTIMATED > 60; GLUCOSE 252 MG/DL (70-105); MAGNESIUM 1.8 MG/DL (1.6-2.4); POTASSIUM 5.1 MMOL/L (3.6-5.0); SODIUM 134 MMOL/L (135-145); TOTAL PROTEIN 6.5 GM/DL (6.4-8.2)
[2020-06-16 11:43] LABS: ALBUMIN 3.5 GM/DL (3.2-4.5)
[2020-06-16 15:15] LABS: PHOSPHORUS 3.9 MG/DL (2.3-4.7)
== END ==
LOC: IHC 10:48
PROVIDERS: ATTEND Family Medicine
DX: D64.9 Anemia, unspecified (principal); E43 Unspecified severe protein-calorie malnutrition
CPT/HCPCS: 80053; 83735; 84100; 85025

== ENCOUNTER → 2020-08-18 | Outpatient (CLI) | payer OTHER, MEDICAID ==
[2020-08-18 14:00] LABS: HEMOGLOBIN 10.1 G/DL (11.5-16.0); MEAN CORPUSCULAR HEMOGLOBIN 31 PG (25-34)
[2020-08-18 14:01] LABS: BASOPHILS % (AUTO) 0 % (0-10); EOSINOPHILS # (AUTO) 0.2 10^3/uL (0.0-0.3); EOSINOPHILS % (AUTO) 3 % (0-10); HEMATOCRIT 33 % (35-52); LYMPHOCYTES # (AUTO) 2.1 X 10^3 (1.0-4.0); LYMPHOCYTES % (AUTO) 36 % (12-44); MEAN CORPUSCULAR HGB CONC 31 G/DL (32-36); MEAN CORPUSCULAR VOLUME 99 FL (80-99); MEAN PLATELET VOLUME 12.9 FL (7.4-10.4); MONOCYTES # (AUTO) 0.6 X 10^3 (0.0-1.0); MONOCYTES % (AUTO) 9 % (0-12); NEUTROPHILS # (AUTO) 3.1 X 10^3 (1.8-7.8); NEUTROPHILS % (AUTO) 52 % (42-75); PLATELET COUNT 171 10^3/uL (130-400)
[2020-08-18 14:11] LABS: CARBON DIOXIDE 20 MMOL/L (21-32); CHLORIDE 104 MMOL/L (98-107); POTASSIUM 4.7 MMOL/L (3.6-5.0); SODIUM 136 MMOL/L (135-145)
[2020-08-18 14:12] LABS: ALANINE AMINOTRANSFERASE 80 U/L (0-55); ALBUMIN 3.4 GM/DL (3.2-4.5); ALKALINE PHOSPHATASE 192 U/L (40-136); BILIRUBIN,TOTAL 0.3 MG/DL (0.1-1.0); BUN/CREATININE RATIO 52; CALCIUM 8.9 MG/DL (8.5-10.1); CREATININE SERUM 0.69 MG/DL (0.60-1.30); GFR ESTIMATED > 60; GLUCOSE 97 MG/DL (70-105); TOTAL PROTEIN 6.1 GM/DL (6.4-8.2)
[2020-08-18 15:41] LABS: TRIGLYCERIDES 109 MG/DL (<150)
[2020-08-18 15:44] LABS: PHOSPHORUS 4.2 MG/DL (2.3-4.7)
== END ==
LOC: LAB FS 13:18
PROVIDERS: ATTEND Family Medicine
DX: D64.9 Anemia, unspecified (principal); E43 Unspecified severe protein-calorie malnutrition
CPT/HCPCS: 36415; 80053; 83735; 84100; 84478; 85025